=== PATIENT | male | born 2000 | race Caucasian/White ===

== ENCOUNTER 2019-06-17 13:37 | Emergency (ER) | payer SELFPAY ==
[2019-06-17 13:43] VITALS: BP 154/73; PULSE 88; RESP 16; TEMP 36.7; O2SAT 98; BMI 21.1
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
[2019-06-17 15:23] VITALS: O2SAT 98
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
[2019-06-17] MEDS: acetaminophen 500 mg Tablet 1000 MG PO (15:35)
[2019-06-17 17:29] VITALS: BP 115/84; PULSE 88; RESP 16; O2SAT 94
--- NOTE | 2019-06-20 10:09 | DCPLANNER ---
applications manager had message to schedule a follow up appointment for patient with Dr. Mosher. applications manager called the office of Dr. Mosher, spoke with Gretel, gave clinic patients information. applications manager was told that patients information would be printed off and given to Dandre for review. Clinic will call pillowcase turner and patient with appointment information.
--- NOTE | 2019-06-21 10:28 | DCPLANNER ---
Patient has a follow up appointment scheduled for Thursday, August 22, 2019 at 10:00 with Jennifer DONALD at [facility].
--- NOTE | 2019-07-07 10:46 | DCPLANNER ---
Dandre from Dr. Fisher office called community case manager, stating that she has not been able to reach patient with appointment information. wind plant manager was told that a letter was sent for patient and patient has not called back for appointment information. wind plant manager tried to call [phone] and it was just a busy signal.
== END 2019-06-17 18:10 | disposition home or self-care (01) ==
PROVIDERS: Emergency Provider Emergency Medicine; Family Provider Counselor Professional
DX: S16.1XXA Strain of muscle, fascia and tendon at neck level, initial encounter (principal); V59.9XXA Occupant (driver) (passenger) of pick-up truck or van injured in unspecified traffic accident, initial encounter
CPT/HCPCS: 70450; 71045; 72040; 72070; 72100; 72125; 72170; 72220; 99282

== ENCOUNTER 2019-09-12 07:00 | Emergency (ER) | payer SELFPAY ==
[2019-09-12 07:05] VITALS: BP 136/93; PULSE 110; RESP 16; TEMP 36.8; O2SAT 100; BMI 22.8
--- NOTE | 2019-09-12 07:07 | ED_ITS ---
HPI - Male Genitourinary General: Chief complaint: Urogenital-Male Stated complaint: Blood in urine Time Seen by Provider: 09/12/19 07:06 Source: patient Mode of arrival: ambulatory Limitations: no limitations History of Present Illness: HPI Narrative: Patient is a 19-year-old male who presents to ED today with complaints of dysuria and hematuria that began on Thursday. Patient tells me on Thursday he was playing baseball when a baseball struck his genitalia. Patient noticed the next day he began having symptoms. He feels his scrotum is swollen and tender to palpation. He denies any penile discharge, rashes/lesions. He denies new sexual partners or concern for STDs. MD Complaint: testicle pain, dysuria, genital injury and other (hematuria) Onset (ago): day(s) Location: right testicle and left testicle Relieving factors: none Exacerbating factors: urination Context: trauma Associated symptoms: Reports dysuria and hematuria; Deny nausea, urinary incontinence or vomiting Review of Systems General: Reports: 10 or more systems reviewed and unremarkable except in HPI and below Const: Denies: fever, chills, body aches, fatigue or malaise ENMT: Denies: throat pain, enlarged tonsils or painful swallowing Card: Denies: chest pain, palpitations or lightheadedness Resp: Denies: shortness of breath, productive cough or chest congestion GI: Denies: abdominal pain, nausea, vomiting or diarrhea : Reports: painful urination, blood in urine, genital pain, testicular pain and scrotal swelling; Denies: flank pain, difficulty urinating, urinary frequency, urinary urgency, urinary hesitancy, difficulty starting urination, change in urine stream, decreased urine ouput, urinary incontinence, genital lesion or penile discharge Musc: Denies: neck pain or back pain Skin/Breast: Denies: rash Neuro: Denies: headache, numbness in extremities, weakness in extremities or changes in sensation PFS ED PFSH: Social History (Updated 07/06/19 @ 13:45 by Dean Conroy LPN) Smoking and tobacco status: former smoker Quit status (tobacco): has quit using tobacco Year quit tobacco: 2019 Second hand smoke exposure: Yes Smoking risk assessment/counseling performed?: Yes Tobacco counseling given: counseling >3 minutes Physical Exam Const: COMMON NORMALS: no apparent distress, average body habitus, oriented x 3, no limitations, healthy appearing, alert and well nourished HENMT: COMMON NORMALS: normocephalic and head/scalp atraumatic HEAD & SCALP: normocephalic and atraumatic Resp: COMMON NORMALS: normal respiratory effort and clear to auscultation bilaterally AUSCULTATION: clear to auscultation bilaterally Cardio: COMMON NORMALS: regular rate and regular rhythm RATE: regular rate RHYTHM: regular rhythm GI: COMMON NORMALS: normal to inspection, nondistended, normoactive bowel s ounds, soft to palpation, non-tender, no hepatosplenomegaly and no masses PALPATION: Yes soft and Yes no hepatosplenomegaly : COMMON NORMALS: Yes no CVA tenderness, Yes external exam normal, Yes no scrotal swelling and Yes no hernias present BLADDER/KIDNEY EXAM: Yes no CVA tenderness PENIS: normal penis MEATUS: meatus normal SCROTUM: Yes testes descended bilaterally, No erythematous, No ecchymosis, No edematous, No scrotal swelling and No lesions TESTES: Yes testicular tenderness (R>L) and Yes epididymides normal Back/Pelvis: COMMON NORMALS: no CVA tenderness Extremity: COMMON NORMALS: normal to inspection Neuro: COMMON NORMALS: oriented x3 SENSORIUM/ORIENTATION: Yes alert Skin: COMMON NORMALS: no rashes or lesions noted GENERAL SKIN EXAM: no rashes or lesions noted Course Vital Signs: Vital signs: Vital Signs Temperature 98.3 F 09/12/19 07:05 Pulse Rate 110 H 09/12/19 07:05 Respiratory Rate 16 09/12/19 07:05 Blood Pressure 136/93 09/12/19 07:05 Pulse Oximetry 100 09/12/19 07:05 MDM - Male MDM Narrative: Medical decision making narrative: Upon re-examination to go over test results patient does state he wants to be tested for STDs stating his girlfriend and him recently broke up and got back together. States she had a different partner when they were broken up. He states he does not want treatment for STDs at this time and just wants tested. Told him lab should contact him for positive results but that he needs to contact medical records in a few days to get results. If positive, girlfriend would also need treatment. Patient verbalized understanding and again tells me he does not wish treatment at this time. Lab Data: Labs: Lab Results 09/12/19 09/12/19 09/12/19 Range/Units 07:15 07:15 07:25 WBC 8.3 (4.5-13.0) 10^3/ uL RBC 5.33 H (4.1-5.3) 10^6/u L Hgb 15.8 (11.7-16.6) g/dL Hct 46.9 (42.0-52.0) % MCV 88.0 (80-94) fL MCH 29.6 (28.0-34.0) pg MCHC 33.7 (30.0-36.0) g/dL RDW 11.3 L (12.1-15.1) % Plt Count 321 (130-400) 10^3/c mm MPV 11.2 H (7.4-10.4) fL Neut % (Auto) 60.2 % Lymph % (Auto) 25.4 % [place] % (Auto) 13.1 % Eos % (Auto) 0.6 % Baso % (Auto) 0.6 % Neut # (Auto) 5.0 (1.8-8.0) 10^3/u L Lymph # (Auto) 2.1 (1.5-6.5) 10^3/u L [place] # (Auto) 1.1 H (0.2-0.9) 10^3/u L Eos # (Auto) 0.1 (0.0-0.8) 10^3/u L Baso # (Auto) 0.1 (0.0-0.1) 10^3/u L Nucleated RBC % (a uto) 0 % Nucleated RBCs # 0.0 /100WBC Sodium 137 (136-145) mmol/L Potassium 3.2 L (3.5-5.1) mmol/L Chloride 97 L (98-107) mmol/L Carbon Dioxide 22 (22-29) mmol/L Anion Gap 21.2 H (5-19) BUN 8 (6-20) mg/dL Creatinine 0.9 (0.7-1.2) mg/dL GFR Calculation 107.6 (90-130) mL/min Glucose 116 H (65-115) mg/dL Calculated Osmolal ity 281 L (285-295) mOsm/k g Calcium 9.8 (8.5-10.5) mg/dL Total Bilirubin 0.9 (0.15-1.2) mg/dL AST 18 (0-40) U/L ALT 19 (0-41) U/L Alkaline Phosphata se 76 (40-130) IU/L Total Protein 8.1 (6.6-8.7) g/dL Albumin 4.8 (3.5-5.2) g/dL Globulin 3.3 (1.3-4.6) g/dL Urine Color Yellow (Yellow) Urine Appearance Clear (CLEAR) Urine pH 5 (5-7) Ur Specific Gravit y 1.025 (1.005-1.030) Urine Protein Neg (Negative) Urine Glucose (UA) Norm (Normal) Urine Ketones 3+ H (Negative) Urine Blood Neg (Negative) Urine Nitrate Negative (Negative) Urine Bilirubin Neg (NEGATIVE) Urine Urobilinogen Norm (Negative) mg/dL Ur Leukocyte Becky ase Negative (Negative) Imaging Data: US scrotum: My impression: Rick D-possible varicocele vs epididymitis on L but given history of trauma this is most likely more swelling/reactive findings Discharge Plan Discharge Patient Disposition: Home, Self-Care Clinical Impression: Pain in testicle due to trauma Condition: Stable Prescriptions: No Action ibuprofen 800 mg tablet 800 mg PO BID PRN (Reason: pain) RF: 0 buspirone 5 mg tablet 5 mg PO TID Qty: 90 RF: 1 trazodone 100 mg tablet 100 mg PO .HS Qty: 30 RF: 1 [place] 5-325 mg tablet 1 tab PO Q6H PRN (Reason: pain) Qty: 14 RF: 0 cyclobenzaprine 10 mg tablet 10 mg PO TID PRN (Reason: muscle spasm) Qty: 30 RF: 0 Discharge Orders: Discharge Order (Routine); Ordered 09/12/19 Ordered By: Lashell Urrutia Referrals: Tisha Lipscomb [Family Provider] - Jose Cobb MD [Primary Care Provider] - Discharge Diet: Usual diet Discharge Activity: Increase activity as tolerated Activity Restrictions/Additional Instructions: As discussed elevate your lower extremities and scrotum as much as possible. Wear supportive underwear. Ice the scrotum for 15-20 minutes every 1-2 hours (do not apply ice directly to skin). You may contact medical records in a few days for the remainder of your test results. 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
--- NOTE | 2019-09-12 07:13 | US_ITS ---
WS: [id number] SCROTAL ULTRASOUND EXAMINATION CLINICAL INFORMATION: trauma; hematuria COMPARISON: None. FINDINGS: TESTES Normal in size and echotexture, without focal lesion. Color Doppler: Normal color Doppler flow pattern. Right testes size: 3.6 cm x 2.6 cm x 1.8 cm. Left testes size: 3.9 cm x 2.5 cm x 2.1 cm. EPIDIDYMIDES Slightly enlarged edematous left epididymis with increased vascularity consistent with epididymitis. No evidence of orchitis. Normal right epididymis. HYDROCELE None. VARICOCELE None. OTHER FINDINGS None. US/US scrotum [id number] IMPRESSION: Enlarged left epididymis with increased vascularity consistent with epididymiti s. No evidence of orchitis
[2019-09-12 07:24] LABS: Basophils # 0.1 10^3/uL (0.0-0.1); Basophils % 0.6 %; Eosinophils # 0.1 10^3/uL (0.0-0.8); Eosinophils % 0.6 %; Hematocrit 46.9 % (42.0-52.0); Hemoglobin 15.8 g/dL (11.7-16.6); Lymphocytes # 2.1 10^3/uL (1.5-6.5); Lymphocytes % 25.4 %; Mean Corpuscular HGB Conc 33.7 g/dL (30.0-36.0); Mean Corpuscular Hemoglobin 29.6 pg (28.0-34.0); Mean Platelet Volume 11.2 fL (7.4-10.4); Monocytes # 1.1 10^3/uL (0.2-0.9); Monocytes % 13.1 %; Neutrophils % 60.2 %; Nucleated Red Blood Cells % 0 %; Platelet Count 321 10^3/cmm (130-400); Red Blood Count 5.33 10^6/uL (4.1-5.3); Red Cell Distribution Width 11.3 % (12.1-15.1); White Blood Count 8.3 10^3/uL (4.5-13.0)
[2019-09-12 07:42] LABS: Alanine Aminotransferase 19 U/L (0-41); Albumin Level 4.8 g/dL (3.5-5.2); Alkaline Phosphatase 76 IU/L (40-130); Anion Gap 21.2 (5-19); Aspartate Amino Transferase 18 U/L (0-40); Blood Urea Nitrogen 8 mg/dL (6-20); Calcium 9.8 mg/dL (8.5-10.5); Carbon Dioxide 22 mmol/L (22-29); Chloride 97 mmol/L (98-107); Globulin 3.3 g/dL (1.3-4.6); Glomerular Filtration Rate 107.6 mL/min (90-130); Glucose 116 mg/dL (65-115); Osmolality Calculated 281 mOsm/kg (285-295); Potassium 3.2 mmol/L (3.5-5.1); Sodium 137 mmol/L (136-145); Total Bilirubin 0.9 mg/dL (0.15-1.2); Total Protein 8.1 g/dL (6.6-8.7)
[2019-09-12 07:47] LABS: Add Urine Microscopic? NO
[2019-09-12 07:51] LABS: Bilirubin Urine Neg (NEGATIVE); Blood Urine Neg (Negative); Glucose Urine UA Norm (Normal); Ketones Urine 3+ (Negative); Leukocyte Esterase Urine Negative (Negative); Nitrate Urine Negative (Negative); Protein Urine Neg (Negative); Specific Gravity, Urine 1.025 (1.005-1.030); Urine Appearance Clear (CLEAR); Urine Color Yellow (Yellow); Urobilinogen Urine Norm (Negative); pH Urine 5 (5-7)
[2019-09-12 08:16] VITALS: BP 134/89; PULSE 106; RESP 18; O2SAT 100
== END 2019-09-12 08:18 | disposition home or self-care (01) ==
LOC: ER 08:46
PROVIDERS: Emergency Provider Physician Assistant; Family Provider Counselor Professional; PCP Family Medicine
DX: N50.812 Left testicular pain (principal); N50.811 Right testicular pain; Z87.891 Personal history of nicotine dependence; F41.1 Generalized anxiety disorder; F12.20 Cannabis dependence, uncomplicated; F15.20 Other stimulant dependence, uncomplicated
CPT/HCPCS: 12345; 36415; 76870; 80053; 81003; 85025; 87491; 87591; 99282; 99283

== ENCOUNTER 2020-01-10 22:45 | Inpatient (IN) | payer SELFPAY ==
[2020-01-10 22:52] VITALS: BP 121/76; PULSE 130; RESP 18; TEMP 36.6; O2SAT 100; BMI 22.1
--- NOTE | 2020-01-10 23:05 | XRR_ITS ---
PROCEDURE INFORMATION: Exam: XR Chest, 1 View Exam date and time: 01/10/2020 11:56 PM Age: 19 years old Clinical indication: Shortness of breath and other: Overdose TECHNIQUE: Imaging protocol: XR of the chest Views: 1 view. COMPARISON: CR XR chest 1V portable [id number] 06/17/2019 2:29 PM FINDINGS: Lungs: Unremarkable. No consolidation. Pleural space: Unremarkable. No pleural effusion. No pneumothorax. Heart/Mediastinum: Unremarkable. No cardiomegaly. Bones/joints: Unremarkable. XR/XR chest 1V portable [id number] IMPRESSION: No acute findings.
--- NOTE | 2020-01-10 23:06 | ECG_ITS ---
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 Measurements Intervals [place] Rate: 126 P: 82 GA: 141 QRS: 118 QRSD: 90 T: 53 QT: 292 QTc: 424 Interpretive Statements SINUS TACHYCARDIA LEFT POSTERIOR FASCICULAR BLOCK [QRS AXIS > 109, INFERIOR Q] No previous ECG available for comparison Electronically Signed On 01-11-2020 17:34:36 CDT by Floyd Quinteros M.D. [id number]
--- NOTE | 2020-01-10 23:10 | W.ED.OVERDOS ---
HPI - Overdose General: Chief Complaint: Overdose Stated Complaint: overdose Time Seen by Provider: 01/10/20 23:04 Source: patient Mode of arrival: ambulatory Limitations: no limitations History of Present Illness: HPI Narrative: Liu is a 19-year-old male who comes in anxious and feeling all sorts of strange sensations throughout his body since using IV methamphetamines. He gives the story that he was smoking methamphetamines for the past 2 days and has not slept in 3 days. Apparently who he was with thought he could be law enforcement so it forced him to use IV meth which he did. He states since that time he has felt strange all over, anxious that he does not like the way he feels. He admits to smoking marijuana as well but denies any other drugs. He has no focal pains or complaints other than he just feels weird/burning all over. Review of Systems Const: Denies: fever(s), chills, body aches, fatigue, malaise or diaphoresis Eyes: Denies: change in vision, blurry vision, blind spots, photophobia, eye discharge or eye redness ENMT: Denies: throat pain, odynophagia, hoarseness, swelling of lips/tongue, oral sores, ear or mastoid pain, ear discharge, change in hearing or nasal discharge Card: Denies: chest pain, palpitations, irregular heart rhythm, edema, lightheadedness, syncope, pre-syncope, dyspnea on exertion or orthopnea Resp: Denies: dyspnea, productive cough, non-productive cough, wheezing, hemoptysis or chest congestion GI: Denies: abdominal pain, nausea, vomiting, hematemesis, coffee ground emesis, heartburn, diarrhea, constipation, GI cramping, hematochezia or melena : Denies: flank pain, dysuria, urinary frequency, urinary urgency or hematuria Musc: Denies: neck pain, back pain, extremity pain, extremity swelling, joint pain, joint swelling, joint redness, joint warmth or joint stiffness Skin/Breast: Denies: rash, pruritus, erythema, skin tenderness or jaundice Neuro: Reports: other (Paresthesias); Denies: headache(s), numbness in extremities, weakness in extremities, sensory changes, lack of coordination, difficulty walking, dizziness, vertigo, confusion, Slurred speech present or seizure-like activity Psych: Reports: anxiety Edd/Lymph: Denies: easy bruising, easy bleeding, petechiae, purpura or enlarged lymph nodes All/Imm: Denies: urticaria, throat swelling, tongue swelling, facial swelling or acute wheezing PFSH ED PFSH: Medical History Amphetamine use disorder, severe Cannabis use disorder, severe, dependence Generalized anxiety disorder Social History Smoking and tobacco status: former smoker Quit status (tobacco): has quit using tobacco Year quit tobacco: 2019 Second hand smoke exposure: Yes Smoking risk assessment/counseling performed?: Yes Tobacco counseling given: counseling >3 minutes Current gender identity: Male Physical Exam Const: COMMON NORMALS: no acute distress, patient oriented x3, no limitations, healthy appearing and well nourished GENERAL APPEARANCE: cooperative, well kempt and well developed HENMT: COMMON NORMALS: normocephalic, atraumatic, external ears normal, EAC's normal and Normal external nose present HEAD & SCALP: normal to inspection, normocephalic and atraumatic FACE & SINUS: normal facial exam and face symmetric NOSE: Normal external nose present and Normal nares present EXTERNAL EAR: Yes external ears normal EXTERNAL AUDITORY CANAL: EAC's normal MOUTH: Normal oral and palatal mucosa present, lip normal and tongue normal Eye: COMMON NORMALS: Equal, round and reactive pupils present and conjunctivae normal GENERAL EYE: appearance normal, both eyes and all related structures ALIGNMENT: Yes alignment normal PERIORBITAL: periorbital findings normal EYELID: eyelids normal CONJUNCTIVA: Yes conjunctivae normal SCLERA: sclerae normal PUPIL: Yes Equal, round and reactive pupils present Neck/C-Spine: COMMON NORMALS: full ROM, no lymphadenopathy, supple, no meningeal signs and no JVD GENERAL: Yes normal visual inspection and Yes trachea midline Chest: COMMONS NORMALS: normal inspection of the chest and normal palpation of entire chest wall Resp: COMMON NORMALS: normal respiratory effort, No retractions and No use of accessory muscles EFFORT & INSPECTION: Yes able to speak in complete sentences and Yes symmetric chest movement AUSCULTATION: no crackles, no rales, no rhonchi and no wheezes Cardio: COMMON NORMALS: no JVD, regular rhythm, S1 normal heart sound present and S2 normal heart sound present RATE: tachycardic RHYTHM: regular rhythm HEART SOUNDS: S1 normal heart sound present, S2 normal heart sound present, no click, no gallops, no murmurs, no rubs and abnormal split S2 GI: COMMON NORMALS: Soft to palpation and No hepatosplenomegaly present PALPATION: Yes Soft to palpation, No Tenderness to palpation present (GI), No Guarding due to palpation present (GI), No Rigid due to palpation, Yes No hepatosplenomegaly present, No Hernia present, No Palpable mass present and No Pulsatile mass present : COMMON NORMALS: Yes no CVA tenderness BLADDER/KIDNEY EXAM: Yes no CVA tenderness Back/Pelvis: COMMON NORMALS: no CVA tenderness, thoracic and lumbar spine normal to inspection, no thoracic nor lumbar tenderness and thoraco-lumbar ROM normal Extremity: COMMON NORMALS: normal to inspection, full ROM, capillary refill normal, no joint enlargement, no clubbing, cyanosis or edema and no calf tenderness Neuro: COMMON NORMALS: patient oriented x3, CN's II-XII intact bilaterally, moves all extremities, no focal motor deficits and no sensory deficits noted MENINGEAL SIGNS: Yes no meningeal signs SPEECH: speech normal Psych: COMMON NORMALS: mental status grossly normal, Normal thought process present, cooperative, normal affect, speech normal and activity/motor behavior normal APPEARANCE: Yes well kempt SPEECH: Yes normal speech THOUGHT PROCESS: Normal thought process present Skin: COMMON NORMALS: no rashes or lesions noted, turgor normal, no jaundice, no petechiae and no mottling GENERAL SKIN EXAM: no rashes or lesions noted and turgor normal Course Vital Signs: Vital signs: Vital Signs Temperature 97.9 F 01/10/20 22:52 Pulse Rate 99 01/11/20 03:56 Respiratory Rate 16 01/11/20 03:56 Blood Pressure 100/53 01/11/20 03:56 Pulse Oximetry 99 01/11/20 03:56 MDM - Overdose MDM Narrative: Medical decision making narrative: The case was reviewed with Dr. Díaz and he agrees to admission. The patient's CK is not in a dangerous range but we will check a daily value to be certain it goes down. The patient is alert and oriented is taking p.o. well there should be no problem with him clearing this. His kidney function is good. Repeat level here after just 2 hours shows that he is clearing the CK well. I will order daily CKs until normal. If it does go up the patient will have to have a consult by the hospitalist service but right now his fluids are still running and his CK is improving. Patient understands has been placed under psychiatric hold for comments made and documented an affidavit. Further care will be dictated by Dr. Díaz. Lab Data: Attestation: I reviewed the patient's lab results. Labs: Lab Results 01/10/20 01/10/20 01/10/20 Range/Units 23:45 23:45 23:45 WBC 10.4 (4.5-13.0) 10^3/ uL RBC 5.19 (4.1-5.3) 10^6/u L Hgb 15.4 (11.7-16.6) g/dL Hct 46.5 (42.0-52.0) % MCV 89.6 (80-94) fL MCH 29.7 (28.0-34.0) pg MCHC 33.1 (30.0-36.0) g/dL RDW 11.6 L (12.1-15.1) % Plt Count 285 (130-400) 10^3/c mm MPV 11.7 H (7.4-10.4) fL Neut % (Auto) 62.2 % Lymph % (Auto) 21.3 % Shackelford % (Auto) 15.1 % Eos % (Auto) 0.4 % Baso % (Auto) 0.7 % Neut # (Auto) 6.47 (1.8-8.0) 10^3/u L Lymph # (Auto) 2.2 (1.5-6.5) 10^3/u L Shackelford # (Auto) 1.6 H (0.2-0.9) 10^3/u L Eos # (Auto) 0.0 (0.0-0.8) 10^3/u L Baso # (Auto) 0.1 (0.0-0.1) 10^3/u L Nucleated RBC % (a uto) 0 % Nucleated RBCs # 0.0 /100WBC Specimen Type Sample Site ABG pH (7.35-7.45) ABG pCO2 (35-45) mmHg ABG pO2 (80.0-100.0) mmH g ABG HCO3 (22-26) mmol/L ABG Base Excess (-2.0-2.0) mmol/ L Yossi Test Hematocrit (42-52) % O2 Delivery Device It Communications Manager ID Sodium 136 (136-145) mmol/L Potassium 3.9 (3.5-5.1) mmol/L Chloride 99 (98-107) mmol/L Carbon Dioxide 20 L (22-29) mmol/L Anion Gap 20.9 H (5-19) BUN 16 (6-20) mg/dL Creatinine 0.9 (0.7-1.2) mg/dL GFR Calculation 107.6 (90-130) mL/min Glucose 91 (65-115) mg/dL Calculated Osmolal ity 278 L (285-295) mOsm/k g Lactic Acid (0.5-2.2) mmol/L Calcium 9.4 (8.5-10.5) mg/dL Magnesium 2.2 (1.7-2.3) mg/dL Total Bilirubin 0.9 (0.15-1.2) mg/dL AST 87 H (0-40) U/L ALT 40 (0-41) U/L Alkaline Phosphata se 57 (40-130) IU/L Creatine Kinase 2772 H* (39-308) U/L Troponin T Baselin e 7 (0-15) ng/L Troponin T 120 Min rosebud (0-15) ng/L Delta Troponin T (0-10) ABS# Total Protein 7.6 (6.6-8.7) g/dL Albumin 4.8 (3.5-5.2) g/dL Globulin 2.8 (1.3-4.6) g/dL Lipase (13-60) U/L Urine Color (Yellow) Urine Appearance (CLEAR) Urine pH (5-7) Ur Specific Gravit y (1.005-1.030) Urine Protein (Negative) Urine Glucose (UA) (Normal) Urine Ketones (Negative) Urine Blood (Negative) Urine Nitrate (Negative) Urine Bilirubin (NEGATIVE) Urine Urobilinogen (Negative) mg/dL Ur Leukocyte Becky ase (Negative) Ur Microscopic Ind ic Urine RBC (0-2) /hpf Urine WBC (0-5) /hpf Ur Squamous Epith Cells (0-5) Amorphous Sediment Urine Bacteria (NONE) Salicylates (3-10) mg/dL Urine Opiates Scre en (Negative) ng/mL Acetaminophen (10-30) ug/mL Ur Barbiturates Sc reen (Negative) ng/mL Phenytoin (10-20) ug/mL Valproic Acid (50-100) ug/mL Carbamazepine (4.0-12.0) ug/mL Ur Phencyclidine S crn (Negative) ng/mL Ur Amphetamines Sc reen (Negative) ng/mL U Benzodiazepines Scrn (Negative) ng/mL Douglass (0.6-1.2) mmol/L Urine Cocaine Scre en (Negative) ng/mL U Marijuana (THC) Screen (Negative) ng/mL Ethyl Alcohol < 10 (0-10) mg/dL 01/11/20 01/11/20 01/11/20 Range/Units 00:40 00:40 00:40 WBC (4.5-13.0) 10^3/ uL RBC (4.1-5.3) 10^6/u L Hgb (11.7-16.6) g/dL Hct (42.0-52.0) % MCV (80-94) fL MCH (28.0-34.0) pg MCHC (30.0-36.0) g/dL RDW (12.1-15.1) % Plt Count (130-400) 10^3/c mm MPV (7.4-10.4) fL Neut % (Auto) % Lymph % (Auto) % Shackelford % (Auto) % Eos % (Auto) % Baso % (Auto) % Neut # (Auto) (1.8-8.0) 10^3/u L Lymph # (Auto) (1.5-6.5) 10^3/u L Shackelford # (Auto) (0.2-0.9) 10^3/u L Eos # (Auto) (0.0-0.8) 10^3/u L Baso # (Auto) (0.0-0.1) 10^3/u L Nucleated RBC % (a uto) % Nucleated RBCs # /100WBC Specimen Type Sample Site ABG pH (7.35-7.45) ABG pCO2 (35-45) mmHg ABG pO2 (80.0-100.0) mmH g ABG HCO3 (22-26) mmol/L ABG Base Excess (-2.0-2.0) mmol/ L Yossi Test Hematocrit (42-52) % O2 Delivery Device It Communications Manager ID Sodium (136-145) mmol/L Potassium (3.5-5.1) mmol/L Chloride (98-107) mmol/L Carbon Dioxide (22-29) mmol/L Anion Gap (5-19) BUN (6-20) mg/dL Creatinine (0.7-1.2) mg/dL GFR Calculation (90-130) mL/min Glucose (65-115) mg/dL Calculated Osmolal ity (285-295) mOsm/k g Lactic Acid (0.5-2.2) mmol/L Calcium (8.5-10.5) mg/dL Magnesium (1.7-2.3) mg/dL Total Bilirubin (0.15-1.2) mg/dL AST (0-40) U/L ALT (0-41) U/L Alkaline Phosphata se (40-130) IU/L Creatine Kinase (39-308) U/L Troponin T Baselin e (0-15) ng/L Troponin T 120 Min rosebud 6.00 (0-15) ng/L Delta Troponin T -1.00 L (0-10) ABS# Total Protein (6.6-8.7) g/dL Albumin (3.5-5.2) g/dL Globulin (1.3-4.6) g/dL Lipase 18 (13-60) U/L Urine Color (Yellow) Urine Appearance (CLEAR) Urine pH (5-7) Ur Specific Gravit y (1.005-1.030) Urine Protein (Negative) Urine Glucose (UA) (Normal) Urine Ketones (Negative) Urine Blood (Negative) Urine Nitrate (Negative) Urine Bilirubin (NEGATIVE) Urine Urobilinogen (Negative) mg/dL Ur Leukocyte Becky ase (Negative) Ur Microscopic Ind ic Urine RBC (0-2) /hpf Urine WBC (0-5) /hpf Ur Squamous Epith Cells (0-5) Amorphous Sediment Urine Bacteria (NONE) Salicylates < 0.3 L (3-10) mg/dL Urine Opiates Scre en (Negative) ng/mL Acetaminophen < 5.0 L (10-30) ug/mL Ur Barbiturates Sc reen (Negative) ng/mL Phenytoin 0.8 L (10-20) ug/mL Valproic Acid 2.8 L (50-100) ug/mL Carbamazepine 2.0 L (4.0-12.0) ug/mL Ur Phencyclidine S crn (Negative) ng/mL Ur Amphetamines Sc reen (Negative) ng/mL U Benzodiazepines Scrn (Negative) ng/mL Douglass 0.1 L (0.6-1.2) mmol/L Urine Cocaine Scre en (Negative) ng/mL U Marijuana (THC) Screen (Negative) ng/mL Ethyl Alcohol (0-10) mg/dL 01/11/20 01/11/20 01/11/20 Range/Units 00:40 00:40 01:25 WBC (4.5-13.0) 10^3/ uL RBC (4.1-5.3) 10^6/u L Hgb (11.7-16.6) g/dL Hct (42.0-52.0) % MCV (80-94) fL MCH (28.0-34.0) pg MCHC (30.0-36.0) g/dL RDW (12.1-15.1) % Plt Count (130-400) 10^3/c mm MPV (7.4-10.4) fL Neut % (Auto) % Lymph % (Auto) % Shackelford % (Auto) % Eos % (Auto) % Baso % (Auto) % Neut # (Auto) (1.8-8.0) 10^3/u L Lymph # (Auto) (1.5-6.5) 10^3/u L [place]ord # (Auto) (0.2-0.9) 10^3/u L Eos # (Auto) (0.0-0.8) 10^3/u L Baso # (Auto) (0.0-0.1) 10^3/u L Nucleated RBC % (a uto) % Nucleated RBCs # /100WBC Specimen Type Arterial Sample Site Radial, right ABG pH 7.44 (7.35-7.45) ABG pCO2 29.1 L (35-45) mmHg ABG pO2 109.0 H (80.0-100.0) mmH g ABG HCO3 19.6 L (22-26) mmol/L ABG Base Excess -3.3 L (-2.0-2.0) mmol/ L Yossi Test Pos Hematocrit 44.4 (42-52) % O2 Delivery Device Room air It Communications Manager ID Halpa Sodium (136-145) mmol/L Potassium (3.5-5.1) mmol/L Chloride (98-107) mmol/L Carbon Dioxide (22-29) mmol/L Anion Gap (5-19) BUN (6-20) mg/dL Creatinine (0.7-1.2) mg/dL GFR Calculation (90-130) mL/min Glucose (65-115) mg/dL Calculated Osmolal ity (285-295) mOsm/k g Lactic Acid 1.0 (0.5-2.2) mmol/L Calcium (8.5-10.5) mg/dL Magnesium (1.7-2.3) mg/dL Total Bilirubin (0.15-1.2) mg/dL AST (0-40) U/L ALT (0-41) U/L Alkaline Phosphata se (40-130) IU/L Creatine Kinase 2560 H* (39-308) U/L Troponin T Baselin e (0-15) ng/L Troponin T 120 Min rosebud (0-15) ng/L Delta Troponin T (0-10) ABS# Total Protein (6.6-8.7) g/dL Albumin (3.5-5.2) g/dL Globulin (1.3-4.6) g/dL Lipase (13-60) U/L Urine Color (Yellow) Urine Appearance (CLEAR) Urine pH (5-7) Ur Specific Gravit y (1.005-1.030) Urine Protein (Negative) Urine Glucose (UA) (Normal) Urine Ketones (Negative) Urine Blood (Negative) Urine Nitrate (Negative) Urine Bilirubin (NEGATIVE) Urine Urobilinogen (Negative) mg/dL Ur Leukocyte Becky ase (Negative) Ur Microscopic Ind ic Urine RBC (0-2) /hpf Urine WBC (0-5) /hpf Ur Squamous Epith Cells (0-5) Amorphous Sediment Urine Bacteria (NONE) Salicylates (3-10) mg/dL Urine Opiates Scre en (Negative) ng/mL Acetaminophen (10-30) ug/mL Ur Barbiturates Sc reen (Negative) ng/mL Phenytoin (10-20) ug/mL Valproic Acid (50-100) ug/mL Carbamazepine (4.0-12.0) ug/mL Ur Phencyclidine S crn (Negative) ng/mL Ur Amphetamines Sc reen (Negative) ng/mL U Benzodiazepines Scrn (Negative) ng/mL Douglass (0.6-1.2) mmol/L Urine Cocaine Scre en (Negative) ng/mL U Marijuana (THC) Screen (Negative) ng/mL Ethyl Alcohol (0-10) mg/dL 01/11/20 01/11/20 Range/Units 02:16 02:16 WBC (4.5-13.0) 10^3/ uL RBC (4.1-5.3) 10^6/u L Hgb (11.7-16.6) g/dL Hct (42.0-52.0) % MCV (80-94) fL MCH (28.0-34.0) pg MCHC (30.0-36.0) g/dL RDW (12.1-15.1) % Plt Count (130-400) 10^3/c mm MPV (7.4-10.4) fL Neut % (Auto) % Lymph % (Auto) % Shackelford % (Auto) % Eos % (Auto) % Baso % (Auto) % Neut # (Auto) (1.8-8.0) 10^3/u L Lymph # (Auto) (1.5-6.5) 10^3/u L Shackelford # (Auto) (0.2-0.9) 10^3/u L Eos # (Auto) (0.0-0.8) 10^3/u L Baso # (Auto) (0.0-0.1) 10^3/u L Nucleated RBC % (a uto) % Nucleated RBCs # /100WBC Specimen Type Sample Site ABG pH (7.35-7.45) ABG pCO2 (35-45) mmHg ABG pO2 (80.0-100.0) mmH g ABG HCO3 (22-26) mmol/L ABG Base Excess (-2.0-2.0) mmol/ L Yossi Test Hematocrit (42-52) % O2 Delivery Device It Communications Manager ID Sodium (136-145) mmol/L Potassium (3.5-5.1) mmol/L Chloride (98-107) mmol/L Carbon Dioxide (22-29) mmol/L Anion Gap (5-19) BUN (6-20) mg/dL Creatinine (0.7-1.2) mg/dL GFR Calculation (90-130) mL/min Glucose (65-115) mg/dL Calculated Osmolal ity (285-295) mOsm/k g Lactic Acid (0.5-2.2) mmol/L Calcium (8.5-10.5) mg/dL Magnesium (1.7-2.3) mg/dL Total Bilirubin (0.15-1.2) mg/dL AST (0-40) U/L ALT (0-41) U/L Alkaline Phosphata se (40-130) IU/L Creatine Kinase (39-308) U/L Troponin T Baselin e (0-15) ng/L Troponin T 120 Min rosebud (0-15) ng/L Delta Troponin T (0-10) ABS# Total Protein (6.6-8.7) g/dL Albumin (3.5-5.2) g/dL Globulin (1.3-4.6) g/dL Lipase (13-60) U/L Urine Color Yellow (Yellow) Urine Appearance Clear (CLEAR) Urine pH 5 (5-7) Ur Specific Gravit y 1.025 (1.005-1.030) Urine Protein Neg (Negative) Urine Glucose (UA) Norm (Normal) Urine Ketones 1+ H (Negative) Urine Blood Neg (Negative) Urine Nitrate Negative (Negative) Urine Bilirubin Neg (NEGATIVE) Urine Urobilinogen Norm (Negative) mg/dL Ur Leukocyte Becky ase Negative (Negative) Ur Microscopic Ind ic Cancelled Urine RBC None (0-2) /hpf Urine WBC None (0-5) /hpf Ur Squamous Epith Cells None (0-5) Amorphous Sediment Not Reportable Urine Bacteria Trace (NONE) Salicylates (3-10) mg/dL Urine Opiates Scre en Negative (Negative) ng/mL Acetaminophen (10-30) ug/mL Ur Barbiturates Sc reen Negative (Negative) ng/mL Phenytoin (10-20) ug/mL Valproic Acid (50-100) ug/mL Carbamazepine (4.0-12.0) ug/mL Ur Phencyclidine S crn Negative (Negative) ng/mL Ur Amphetamines Sc reen Positive H (Negative) ng/mL U Benzodiazepines Scrn Negative (Negative) ng/mL Douglass (0.6-1.2) mmol/L Urine Cocaine Scre en Negative (Negative) ng/mL U Marijuana (THC) Screen Positive H (Negative) ng/mL Ethyl Alcohol (0-10) mg/dL EKG Data^: EKG 1: Attestation: I personally reviewed and interpreted this EKG as follows: EKG interpretation date: 01/11/20 EKG interpretation time: 23:18 Interpretation: Sinus tachycardia at 126 beats a minute, right axis deviation, nonspecific ST and T wave changes. Left posterior fascicular block. EKG 2: Attestation: I personally reviewed and interpreted this EKG as follows: EKG interpretation date: 01/11/20 EKG interpretation time: 01:28 Interpretation: Sinus tachycardia 115 beats a minute, right axis deviation, left posterior fascicular block, nonspecific ST-T wave changes. Unchanged from previous. Discharge Plan Discharge Patient Disposition: Admitted As Inpatient Admit Provider: Ray Díaz Clinical Impression: Suicidal ideation Drug overdose Qualifiers: Encounter type: initial encounter Injury intent: accidental or unintentional Qualified Code(s): T50.901A - Poisoning by unspecified drugs, medicaments and biological substances, accidental (unintentional), initial encounter Condition: Stable Referrals: Jose Cobb MD [Primary Care Provider] - Coding Level of Care Code ED [employer] Advisor for Chg Fwd Exam Comprehensive
--- NOTE | 2020-01-10 23:37 | PC.NURSE ---
THIS NURSE ASSUMED CARE OF PT AT THIS TIME.
[2020-01-10] MEDS: ondansetron 2 mg/ML SDV 2 mL 4 MG IVP (23:55)
[2020-01-10] MEDS: LORazepam 2 mg/mL INJ 1 mL 1 MG IVP (23:55)
[2020-01-11] VITALS (9 sets, daily range): BP systolic 97–135; BP diastolic 52–73; PULSE 77–120; RESP 10–18; TEMP 36.3–36.9; O2SAT 96–100
[2020-01-11] MEDS: lactated ringers 1,000 ML 999 ML IV ×2 (00:13)
[2020-01-11 00:23] LABS: Alanine Aminotransferase 40 U/L (0-41); Albumin Level 4.8 g/dL (3.5-5.2); Alkaline Phosphatase 57 IU/L (40-130); Aspartate Amino Transferase 87 U/L (0-40); Blood Urea Nitrogen 16 mg/dL (6-20); Calcium 9.4 mg/dL (8.5-10.5); Carbon Dioxide 20 mmol/L (22-29); Chloride 99 mmol/L (98-107); Globulin 2.8 g/dL (1.3-4.6); Glomerular Filtration Rate 107.6 mL/min (90-130); Glucose 91 mg/dL (65-115); Magnesium 2.2 mg/dL (1.7-2.3); Osmolality Calculated 278 mOsm/kg (285-295); Sodium 136 mmol/L (136-145); Total Bilirubin 0.9 mg/dL (0.15-1.2); Total Protein 7.6 g/dL (6.6-8.7)
[2020-01-11 00:25] LABS: Troponin(5th) Baseline 7 ng/L (0-15)
[2020-01-11 00:26] LABS: Basophils # 0.1 10^3/uL (0.0-0.1); Basophils % 0.7 %; Eosinophils % 0.4 %; Hematocrit 46.5 % (42.0-52.0); Hemoglobin 15.4 g/dL (11.7-16.6); Lymphocytes # 2.2 10^3/uL (1.5-6.5); Lymphocytes % 21.3 %; Mean Corpuscular HGB Conc 33.1 g/dL (30.0-36.0); Mean Corpuscular Hemoglobin 29.7 pg (28.0-34.0); Mean Corpuscular Volume 89.6 fL (80-94); Mean Platelet Volume 11.7 fL (7.4-10.4); Monocytes # 1.6 10^3/uL (0.2-0.9); Monocytes % 15.1 %; Neutrophils # 6.47 10^3/uL (1.8-8.0); Neutrophils % 62.2 %; Nucleated Red Blood Cells % 0 %; Platelet Count 285 10^3/cmm (130-400); Red Blood Count 5.19 10^6/uL (4.1-5.3); Red Cell Distribution Width 11.6 % (12.1-15.1); White Blood Count 10.4 10^3/uL (4.5-13.0)
[2020-01-11 00:29] LABS: Alcohol Level < 10 mg/dL (0-10); Anion Gap 20.9 (5-19); Potassium 3.9 mmol/L (3.5-5.1)
[2020-01-11 00:55] LABS: Creatine Phosphokinase 2772 U/L (39-308)
--- NOTE | 2020-01-11 01:06 | ECG_ITS ---
[facility] Test Date: 2020-01-11 Pat Name: Liu Cisneros Department: Room: Gender: Male Quality Coordinator: : 2000 Requested By: Ivory Ang Order Number: [id number] Venus MD: Floyd Quinteros M.D. Measurements Intervals [place] Rate: 115 P: 78 PA: 141 QRS: 108 QRSD: 95 T: 53 QT: 325 QTc: 450 Interpretive Statements SINUS TACHYCARDIA RIGHT AXIS DEVIATION [QRS AXIS > 100] Compared to ECG 01/10/2020 23:18:28 No significant change is noted Electronically Signed On 01-11-2020 10:30:09 CDT by Floyd Quinteros M.D. [email or web address]
[2020-01-11 01:10] LABS: Lipase 18 U/L (13-60); Valproic Acid Level 2.8 ug/mL (50-100)
[2020-01-11 01:14] LABS: Acetaminophen < 5.0 ug/mL (10-30); Salicylate < 0.3 mg/dL (3-10)
[2020-01-11] MEDS: LORazepam 2 mg/mL INJ 1 mL 1 MG IVP ×2 (01:19→02:07)
[2020-01-11 01:26] LABS: Lithium 0.1 mmol/L (0.6-1.2); Phenytoin Dilantin 0.8 ug/mL (10-20)
[2020-01-11 01:35] LABS: ABG PCO2 29.1 mmHg (35-45); ABG PH Result 7.44 (7.35-7.45); Arterial Blood Gas Hematocrit 44.4 % (42-52); Base Excess ABG -3.3 mmol/L (-2.0-2.0); Blood Gas Allen Test Pos; Blood Gas Sample Site Radial, right; Blood Gas Sample Type Arterial; HCO3 ABG 19.6 mmol/L (22-26); Oxygen Device ROOM AIR
[2020-01-11] MEDS: sodium chloride 0.9% 1,000 ML 999 ML IV ×2 (02:08→03:11)
[2020-01-11 02:25] LABS: Creatine Phosphokinase 2560 U/L (39-308)
[2020-01-11 02:38] LABS: Amphetamines Screen Urine Positive (Negative); Barbiturates Screen Urine Negative (Negative); Benzodiazepines Screen Urine Negative (Negative); Bilirubin Urine Neg (NEGATIVE); Blood Urine Neg (Negative); Cocaine Screen Urine Negative (Negative); Glucose Urine UA Norm (Normal); Ketones Urine 1+ (Negative); Leukocyte Esterase Urine Negative (Negative); Nitrate Urine Negative (Negative); Opiate Screen Urine Negative (Negative); PCP Screen Urine Negative (Negative); Protein Urine Neg (Negative); Specific Gravity, Urine 1.025 (1.005-1.030); THC Screen Urine Positive (Negative); Urine Appearance Clear (CLEAR); Urine Color Yellow (Yellow); Urobilinogen Urine Norm (Negative); pH Urine 5 (5-7)
[2020-01-11 02:39] LABS: Bacteria Urine TRACE
[2020-01-11 07:36] LABS: Troponin 5 6HR 6.89 ng/L (0-15); Troponin 5 6HR Delta -0.11 ng/L (0-12)
--- NOTE | 2020-01-11 13:58 | P.HP_ITS ---
Providers/Chief Complaint Admitting Physician: Ray Díaz MD Primary Care Provider: Jose Cobb MD Chief Complaint: overdose HPI NPU History of Present Illness Chief complaint: DFS contest using drugs and they took my kid away. Now my girlfriend is moving to [place]. History of present illness:Liu Cisneros is a 19 year old male admi tted to the adult psychiatric unit on the strength of an affidavit filed by his aunt who reported that he had made multiple suicide statements over the past 2 weeks. He has a long-term history of methamphetamine and marijuana abuse. Urine drug screen is positive for both. He presents today and distress due to his substance abuse. He has difficulty focusing his attention. During the interview he just lays his head on the desk. When he does not focus on issues leading to hospitalization, he simply sits there and sobs. He provides no significant information as his speech is slurred. Information below is acquired through chart review. Laboratory Tests 01/10/20 01/11/20 01/11/20 23:45 00:40 02:16 Creatine Kinase 2560 H* Urine Opiates Screen Negative Ur Barbiturates Screen Negative Ur Phencyclidine Scrn Negative Ur Amphetamines Screen Positive H U Benzodiazepines Scrn Negative Urine Cocaine Screen Negative U Marijuana (THC) Screen Positive H Ethyl Alcohol < 10 ER physician note: HPI Narrative: Liu is a 19-year-old male who comes in anxious and feeling all sorts of strange sensations throughout his body since using IV methamphetamines. He gives the story that he was smoking methamphetamines for the past 2 days and has not slept in 3 days. Apparently who he was with thought he could be law enforcement so it forced him to use IV meth which he did. He states since that time he has felt strange all over, anxious that he does not like the way he feels. He admits to smoking marijuana as well but denies any other drugs. He has no focal pains or complaints other than he just feels weird/burning all over. Mental health history: Psychiatric Evaluation of 07/06/2019 History of Present Illness: This is a 18-year-old male with a history of severe methamphetamine and marijuana use who is now 40 days sober while at [facility]. He is complaining of anxiety with frequent worry anxious racing thoughts in addition to his mind going blank often feeling confused. He feels like the last year of meth binging is change his brain which is likely an accurate assessment. Tells me he started using meth at the age of 15 daily started but over a year ago presents to only get an eating it. His girlfriend is also trying with getting sober as well. DFS to the patient's [id number] child is now in custody with the patient's grandmother. Patient denies any suicidal thoughts he does have craving for meth and says that he gets upset he automatically thinks about using meth again. There is no medication assisted treatment for stimulants such as methamphetamine hopefully treating anxiety di fficulties and being a controlled environment allowed to get filled on his cravings. Mental Health intake from 12/23/2019: [facility] Complaint: anger outbursts, really bad depression. Childhood/Family History:: I don't like holding everything in, need better ways to cope, have problems expressing myself, been clean since July of this year, depression, have alot of anxiety, feel people are staring at me or want to fight me, when I am at the park with my kids I constantly watch them think someone will hurt them or they will fall and hurt themselves, to the point of being overprotective, sleep a few hours of sleep per night, okay childhood raised by mom at age 13, then went to [place] and lived with dad, 2 brothers and 2 sisters, have a son and daughter 3 and 1. Past Psychiatric History: He denies past admissions, says he had some cutting at the age of 13 when girlfriend broke up with him with 3 cuts on his left arm. 14 months ago he says he had a suicide attempt when he was high on meth when he tried to hang himself but the toñito broke. He denies ever being treated with medications. It is unclear whether he has been through rehab previously Family History: Noncontributory Substance Use History: Methamphetamine: Started at age of [age] years old daily started by age 17 he denies IV drug use says he snorts it and he said last use was 40 days ago Marijuana: Started at age [age] years old daily user for a number of years last use was 40 days ago Social History: Never been he has a current girlfriend and they have a [id number] son together. Son staying with the patient's grandmother. Patient dropped out of school in 10th grade as a GED. He says he was in special classes for reading Legal history: Patient has 1 felony arrest with 3 separate charges from 19 Oct 2019. He was charged with armed criminal action, unlawful use of a weapon, and third degree domestic assault. Past medical history: See emergency room record Mental Status Exam: The patient is fatigued and staggers into the interview room. He is oriented only to situation. He does not know where he is. He recalls getting high last night and using IV methamphetamine. He said he became concerned and called his aunt. His aunt brought him to the emergency room. The next thing he knew he was here. He confirmed as reports he has made suicidal statements. He then became despondent and tearful making of the chief complaint and then becoming unable to interview because of his tearfulness and lethargy. He was in no apparent physical distress. Diagnoses: Amphetamine intoxication Marijuana intoxication History of amphetamine use disorder History of marijuana use disorder Adjustment disorder with disturbance of mood and conduct Assessment: The patient has had an independent psychiatric evaluation within the past 6 months detailing her primary diagnoses of substance abuse disorder. We are unaware of his participation in prior rehabilitation programs but that will be explored and he will be recommended for the most intense rehabilitation services that are available and appropriate to him. Further information will be required to assess whether he would respond to antidepressant treatment. Treatment plan: Due to the psychiatric conditions and treatment listed in the Assessment and Plan - the patient requires continued hospitalization. Will provide a safe and therapeutic environment for patient.. Will continue inpatient treatment to allow for medication adjustment and monit oring. Will continue q15 min safety checks. The patient has had an independent psychiatric evaluation within the past 6 months detailing her primary diagnoses of substance abuse disorder. We are u naware of his participation in prior rehabilitation programs but that will be explored and he will be recommended for the most intense rehabilitation services that are available and appropriate to him. Further information will be required to assess whether he would respond to antidepressant treatment. Patient will be admitted to the adult psychiatric unit and entered into the full array of individual and group therapies as part of that unit protocol. They will be provided 24-hour access to trained psychiatric nursing care and monitoring. Potential benefits and side effects of medications were discussed as well as the time course of expected response to medication changes. No medications are initiated at this time. He is on a 96-hour involuntary commitment. Monitor patient's mood, sleep, appetite, and behavior closely. Encourage patient to participate in individual and group therapeutic sessions on the [facility]. Estimated length of stay 5 days The expected benefits and potential side effects of patient's psychiatric medications were discussed with the patient. The patient understands and consents to treatment.CRITERIA FOR DISCHARGE: stable on medications and no longer an imminent risk Meds NPU Home Medications Medication Instructions Recorded Confirmed Last Taken Type cyclobenzaprine 10 mg PO TID PRN #30 tab 06/17/19 12/23/19 Unknown Rx hydrocodone-acetaminophen [[place]] 1 tab PO Q6H PRN #14 tab 06/17/19 12/23/19 Unknown Rx ibuprofen 800 mg tablet 800 mg PO BID PRN tab 07/06/19 12/23/19 Unknown History cetirizine 10 mg capsule 10 mg PO DAILY 12/15/19 12/23/19 Unknown History buspirone 15 mg tablet 15 mg PO TID #90 tab 12/16/19 12/23/19 Unknown Rx duloxetine 30 mg capsule,delayed 30 mg PO DAILY #30 cap 12/16/19 12/23/19 Unknown Rx release Allergies Allergy/AdvReac Type Severity Reaction Status Date / Time No Known Allergies Allergy Verified 12/15/19 12:07 [facility] NPU PFSH: Medical History Amphetamine use disorder, severe Cannabis use disorder, severe, dependence Generalized anxiety disorder Social History Smoking and tobacco status: former smoker Quit status (tobacco): has quit using tobacco Year quit tobacco: 2019 Second hand smoke exposure: Yes Smoking risk assessment/counseling performed?: Yes Tobacco counseling given: counseling >3 minutes Current gender identity: Male Vitals/I&O/Wt Last Vital Signs Temp 98.5 F 01/11/20 13:28 Pulse 104 H 01/11/20 13:28 Resp 18 01/11/20 13:28 BP 101/54 01/11/20 13:28 Pulse Ox 99 01/11/20 13:28 01/10/20 01/11/20 01/11/20 22:59 06:59 14:59 Intake Total 0 / 0 Balance 0 / 0 Weight last 48 hrs Weight 68.039 kg Data NPU : 01/10/20 23:45 01/10/20 23:45 Involuntary Hold Information 96 Hour Hold: 96 Hour Involuntary Admission: Yes 96 Hour Hold Ending Date: 01/17/20 96 Hour Hold Ending Time: 02:30 Attestations NPU Medical Necessity Statement*: Patient will remain in the hospital another 4-6 nights under an involuntary commitment. Coding Level of Care Code Acute [employer] for Juaquin Garcia
[2020-01-11] MEDS: hyDROXYzine 25 mg Capsule 50 MG PO (17:05)
[2020-01-12] MEDS: acetaminophen 325 mg Tablet 650 MG PO (03:27)
[2020-01-12 05:28] LABS: Creatine Phosphokinase 492 U/L (39-308)
--- NOTE | 2020-01-12 05:30 | PC.NURSE ---
Received call from Jackelyn in the lab who reported critical CK 492. This result is significantly lower compared to result from yesterday.
[2020-01-12 06:00] VITALS: BP 94/56; PULSE 84; RESP 15; TEMP 36.7; O2SAT 97
--- NOTE | 2020-01-12 10:56 | P.PN_ITS ---
Subjective NPU Subjective: Interval history: Patient is much more alert today after a night sleep and the methamphetamine intoxication has worn off. He confirms the presence of clinical depression in the form of feelings of hopelessness, worthlessness, suicidal ideation, persistent dysphoria, and anhedonia. He denies the presence of auditory or visual hallucinations. He would like to go right to a year-long rehabilitation program where he will stay sober but mainly place that we will get him a job. 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 He is extremely despondent over the absence of his children. Mental Status Exam MSE Comments: Mental Status Exam: Appearance: hygiene is fair; no gross neurological deficits., gait is unremarkable; AIMS=0 Speech: Speech is of normal rate and rhythm and easily understood. Thought processes: Thought processes are concrete. Judgment is adequate for safety. Associations: intact Psychotic processes: There is no indication of guarding or paranoia. There is no attention to the internal stimuli. Auditory and visual hallucinations are denied. Judgment: Insight is fair. Problem solving skills are adequate for safety. Orientation: The patient is oriented to person, place time and situation. Memory: no deficits noted in immediate, intermediate, or remote spheres. Attention: The patient is alert and interpersonally engaged. Language: Verbalizations are coherent. Fund of knowledge: Fund of knowledge is poor. Affect/Mood: Affect is consistent with a depressed mood. Denied suicidal ideation Affective range is appropriate. Psychosis: perception impaired through cognitive distortion and intellectual deficit; reality testing intact. 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 Will provide a safe and therapeutic environment for patient.. Will continue inpatient treatment to allow for medication adjustment and monitoring. Will continue q15 min safety checks. The patient has had an independent psychiatric evaluation within the past 6 months detailing her primary diagnoses of substance abuse disorder. We are unaware of his participation in prior rehabilitation programs but that will be explored and he will be recommended for the most intense rehabilitation services that are available and appropriate to him. Further information will be required to assess whether he would respond to antidepressant treatment. Patient will be admitted to the adult psychiatric unit and entered into the full array of individual and group therapies as part of that unit protocol. They will be provided 24-hour access to trained psychiatric nursing care and monitoring. Potential benefits and side effects of medications were discussed as well as the time course of expected response to medication changes. No medications are initiated at this time. He is on a 96-hour involuntary commitment. Hospital day #2: Patient is much more alert today after a night sleep and the methamphetamine intoxication has worn off. He confirms the presence of clinical depression in the form of feelings of hopelessness, worthlessness, suicidal ideation, persistent dysphoria, and anhedonia. He denies the presence of auditory or visual hallucinations. He would like to go right to a year-long rehabilitation program where he will stay sober but mainly place that we will get him a job. 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 He is extremely despondent over the absence of his children. Plan: Initiate fluoxetine 20 mg daily. Potential benefits and side effects of this medication were discussed in detail and its use was agreed upon. Contingency plan should there be unexpected or intolerable side effects as discontinuation. Monitor patient's mood, sleep, appetite, and behavior closely. Encourage patient to participate in individual and group therapeutic sessions on the [place]. Estimated length of stay 5 days The expected benefits and potential side effects of patient's psychiatric medications were discussed with the patient. The patient understands and consents to treatment.CRITERIA FOR DISCHARGE: stable on medications and no longer an imminent risk Involuntary Hold Information 96 Hour Hold: 96 Hour Involuntary Admission: Yes 96 Hour Hold Ending Date: 01/17/20 96 Hour Hold Ending Time: 02:30 Attestations NPU Medical Necessity Statement*: Patient will remain in the hospital another 2-4 nights for assessment of medication efficacy and tolerability. Coding Level of Care Code Acute [employer] for Juaquin Fwd Diagnoses Major depression, single episode F32.9
[2020-01-12] MEDS: fluoxetine 20 mg Capsule PO (11:37)
[2020-01-12 14:00] VITALS: BP 95/60; PULSE 90; RESP 18; TEMP 36.6; O2SAT 98
[2020-01-12 20:58] VITALS: BP 104/67; PULSE 90; RESP 17; TEMP 37.1; O2SAT 97
[2020-01-13 06:00] VITALS: BP 108/73; PULSE 85; RESP 13; TEMP 36.6; O2SAT 98
[2020-01-13 07:03] LABS: Creatine Phosphokinase 151 U/L (39-308)
[2020-01-13] MEDS: fluoxetine 20 mg Capsule PO (08:26)
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
[2020-01-13 12:11] VITALS: BP 108/73; PULSE 85; RESP 13; TEMP 36.6; O2SAT 98
== END 2020-01-13 13:48 | disposition home or self-care (01) | DRG 885 ==
LOC: ER 01-11 02:46 → NP 01-11 07:21
PROVIDERS: Emergency Medicine; Admitting Provider Psychiatry & Neurology Psychiatry; PCP Family Medicine; Visit Provider Psychiatry & Neurology Psychiatry
DX: F32.2 Major depressive disorder, single episode, severe without psychotic features (principal); F15.129 Other stimulant abuse with intoxication, unspecified; F12.20 Cannabis dependence, uncomplicated; F79 Unspecified intellectual disabilities; Z87.891 Personal history of nicotine dependence
CPT/HCPCS: 12345; 36415; 36600; 71045; 80053; 80156; 80164; 80178; 80185; 80306; 80307; 81001; 81003; 82550; 82803; 83605; 83690; 83735; 84484; 85025; 93005; 93010; 99284; J2060; J2405; J7030

== ENCOUNTER 2020-03-19 23:17 | Inpatient (IN) | payer SELFPAY ==
[2020-03-19 23:30] VITALS: BP 154/89; PULSE 91; RESP 14; TEMP 36.9; O2SAT 98; BMI 23.6
--- NOTE | 2020-03-19 23:52 | XRR_ITS ---
PROCEDURE INFORMATION: Exam: XR Chest, 1 View Exam date and time: 03/20/2020 2:18 AM Age: 19 years old Clinical indication: Type not specified; Patient HX: Chest pain after meth use TECHNIQUE: Imaging protocol: XR of the chest Views: 1 view. COMPARISON: CR XR chest 1V portable [id number] 01/10/2020 11:42 PM FINDINGS: Lungs: Unremarkable. No consolidation. Pleural space: Unremarkable. No pleural effusion. No pneumothorax. Heart/Mediastinum: Unremarkable. No cardiomegaly. Bones/joints: Unremarkable. XR/XR chest 1V portable [id number] IMPRESSION: No acute findings.
--- NOTE | 2020-03-19 23:52 | ECG_ITS ---
[facility] Test Date: 2020-03-19 Pat Name: Liu Cisneros Department: Room: Gender: Male Wind Up Operator: TATIANA : 2000 Requested By: Ivory Ang Order Number: [id number] Venus MD: Floyd Quinteros M.D. Measurements Intervals [place] Rate: 81 P: 62 GA: 119 QRS: 103 QRSD: 95 T: 60 QT: 338 QTc: 393 Interpretive Statements SINUS RHYTHM WITH SHORT GA INTERVAL MARKED RIGHT AXIS DEVIATION [QRS AXIS > 100] Compared to ECG 01/11/2020 01:28:23 Short GA interval now present Sinus tachycardia no longer present Electronically Signed On 03-20-2020 13:20:07 CDT by Floyd Quinteros M.D. [id number]
[2020-03-20] VITALS (12 sets, daily range): BP systolic 118–158; BP diastolic 67–102; PULSE 72–134; RESP 16–18; TEMP 36.5–37.1; O2SAT 99–100
[2020-03-20 00:14] LABS: Basophils # 0.1 10^3/uL (0.0-0.1); Basophils % 0.5 %; Eosinophils # 0.1 10^3/uL (0.0-0.8); Eosinophils % 0.8 %; Hematocrit 50.1 % (42.0-52.0); Hemoglobin 16.3 g/dL (11.7-16.6); Lymphocytes # 2.2 10^3/uL (1.5-6.5); Mean Corpuscular HGB Conc 32.5 g/dL (30.0-36.0); Mean Corpuscular Volume 92.1 fL (80-94); Mean Platelet Volume 10.6 fL (7.4-10.4); Monocytes % 10.1 %; Neutrophils # 6.53 10^3/uL (1.8-8.0); Neutrophils % 66.3 %; Nucleated Red Blood Cells % 0 %; Platelet Count 335 10^3/cmm (130-400); Red Blood Count 5.44 10^6/uL (4.1-5.3); Red Cell Distribution Width 11.2 % (12.1-15.1); White Blood Count 9.8 10^3/uL (4.5-13.0)
[2020-03-20 00:36] LABS: INR 1.08 (0.8-1.2); Partial Thromboplastin Time 29.7 SECONDS (23.9-36.7)
[2020-03-20 00:39] LABS: D Dimer 0.49 ug/mIFEU (0-0.59)
[2020-03-20 00:43] LABS: Troponin(5th) Baseline 6 ng/L (0-15)
[2020-03-20 00:51] LABS: Alanine Aminotransferase 15 U/L (0-41); Albumin Level 4.7 g/dL (3.5-5.2); Alkaline Phosphatase 73 IU/L (40-130); Anion Gap 18.7 (5-19); Aspartate Amino Transferase 14 U/L (0-40); Blood Urea Nitrogen 10 mg/dL (6-20); Calcium 10.3 mg/dL (8.5-10.5); Carbon Dioxide 24 mmol/L (22-29); Chloride 100 mmol/L (98-107); Creatine Phosphokinase 94 U/L (39-308); Creatinine Clr Calc Pharmacy 132.3148; Globulin 2.5 g/dL (1.3-4.6); Glomerular Filtration Rate 107.6 mL/min (90-130); Glucose 108 mg/dL (65-115); Lipase 22 U/L (13-60); NT Pro B Type Natriuretic Pept 5 pg/mL (0-125); Osmolality Calculated 288 mOsm/kg (285-295); Potassium 3.7 mmol/L (3.5-5.1); Sodium 139 mmol/L (136-145); Total Bilirubin 0.7 mg/dL (0.15-1.2); Total Protein 7.2 g/dL (6.6-8.7)
--- NOTE | 2020-03-20 01:52 | ECG_ITS ---
[facility] Test Date: 2020-03-20 Pat Name: Liu Cisneros Department: Room: Gender: Male Home Care Attendant: : 2000 Requested By: Ivory Ang Order Number: [id number] Donovan MD: Floyd Quinteros M.D. Measurements Intervals [place] Rate: 74 P: 74 CA: 143 QRS: 95 QRSD: 98 T: 67 QT: 365 QTc: 406 Interpretive Statements SINUS RHYTHM BORDERLINE RIGHT AXIS DEVIATION [QRS AXIS > 90] Compared to ECG 01/11/2020 01:28:23 Sinus tachycardia no longer present Electronically Signed On 03-20-2020 13:22:31 CDT by Floyd Quinteros M.D. [id number]
[2020-03-20 01:55] LABS: Add Urine Microscopic? YES; Bilirubin Urine Neg (Negative); Blood Urine Neg (Negative); Glucose Urine UA Norm (Normal); Ketones Urine 1+ (Negative); Leukocyte Esterase Urine Negative (Negative); Nitrate Urine Negative (Negative); Protein Urine Neg (Negative); RBC Urine RARE /hpf (0-2); Specific Gravity, Urine 1.025 (1.005-1.030); Urine Appearance SL Hazy (CLEAR); Urine Color Yellow (Yellow); Urobilinogen Urine Norm (Negative); pH Urine 5 (5-7)
[2020-03-20 01:56] LABS: Bacteria Urine TRACE /hpf; Mucus Urine 2+ /hpf; Squamous Epithelial Cell Urine 0-4 /hpf (0-5); WBC Urine 0-4 /hpf (0-5)
[2020-03-20 01:57] LABS: Add Urine Culture? No; Sperm Urine 1+ /hpf
--- NOTE | 2020-03-20 01:59 | W.ED.GENADLT ---
HPI - General Adult General: Chief complaint: General Medical Stated complaint: CHEST PAIN, H/A, WANTS DETOX Time Seen by Provider: 03/20/20 01:32 Source: patient Mode of arrival: ambulatory Limitations: no limitations History of Present Illness: HPI narrative: Liu is a nice 19-year-old male who comes in complaining of malaise after shooting up methamphetamines. He had been sober for quite some time but then returned to using earlier this morning. He states he had a brief but then started to feel achy and like he would relapsed. He denies any fevers or chills. He did inject the methamphetamines. Says he just aches like he would in the past would come off meth. States he wants to find an outpatient facility to help him get clean again. He is denying any other complaints or concerns. Associated symptoms: Reports malaise; Deny chest pain, confusion, diaphoresis, dyspnea, headache(s), nausea, rash, palpitations, syncope or vomiting Review of Systems Const: Reports: body aches, fatigue and malaise; Denies: diaphoresis Eyes: Denies: change in vision, blurry vision, photophobia, eye discomfort, eye discharge, eye redness or yellow eyes ENMT: Denies: throat pain, odynophagia, hoarseness, swelling of lips/tongue, ear or mastoid pain, ear discharge, change in hearing or nasal discharge Card: Denies: chest pain, palpitations, irregular heart rhythm, edema, lightheadedness, syncope, pre-syncope, dyspnea on exertion or orthopnea Resp: Denies: dyspnea, productive cough, non-productive cough, wheezing, hemoptysis or chest congestion GI: Denies: abdominal pain, nausea, vomiting, hematemesis, coffee ground emesis, heartburn, diarrhea, constipation, GI cramping, hematochezia or melena : Denies: flank pain, dysuria, urinary frequency, urinary urgency or hematuria Musc: Denies: neck pain, back pain, extremity pain, extremity swelling, joint pain, joint swelling, joint redness, joint warmth or joint stiffness Skin/Breast: Denies: rash, pruritus, erythema, skin pain or skin tenderness Neuro: Denies: headache(s), numbness in extremities, weakness in extremities, sensory changes, lack of coordination, difficulty walking, dizziness, vertigo, confusion, Slurred speech present or seizure-like activity Edd/Lymph: Denies: easy bruising, easy bleeding, petechiae, purpura or enlarged lymph nodes All/Imm: Denies: urticaria, throat swelling, tongue swelling, facial swelling or acute wheezing PFSH ED PFSH: Medical History Amphetamine use disorder, severe Cannabis use disorder, severe, dependence Generalized anxiety disorder Social History Smoking and tobacco status: former smoker Quit status (tobacco): has quit using tobacco Year quit tobacco: 2019 Second hand smoke exposure: Yes Smoking risk assessment/counseling performed?: Yes Tobacco counseling given: counseling >3 minutes Current gender identity: Male Physical Exam Const: COMMON NORMALS: no acute distress, patient oriented x3, no limitations and alert GENERAL APPEARANCE: cooperative HENMT: COMMON NORMALS: normocephalic, atraumatic, external ears normal, EAC's normal and Normal external nose present HEAD & SCALP: normal to inspection, normocephalic and atraumatic FACE & SINUS: normal facial exam and face symmetric NOSE: Normal external nose present and Normal nares present EXTERNAL EAR: Yes external ears normal EXTERNAL AUDITORY CANAL: EAC's normal MOUTH: Normal oral and palatal mucosa present, lip normal and tongue normal Eye: COMMON NORMALS: Equal, round and reactive pupils present and conjunctivae normal GENERAL EYE: appearance normal, both eyes and all related structures ALIGNMENT: Yes alignment normal PERIORBITAL: periorbital findings normal EYELID: eyelids normal CONJUNCTIVA: Yes conjunctivae normal SCLERA: sclerae normal PUPIL: Yes Equal, round and reactive pupils present Neck/C-Spine: COMMON NORMALS: full ROM, no lymphadenopathy, supple, no meningeal signs and no JVD GENERAL: Yes normal visual inspection and Yes trachea midline Chest: COMMONS NORMALS: normal inspection of the chest and normal palpation of entire chest wall Resp: COMMON NORMALS: normal respiratory effort, No retractions, No use of accessory muscles and clear to auscultation bilaterally EFFORT & INSPECTION: Yes able to speak in complete sentences and Yes symmetric chest movement AUSCULTATION: clear to auscultation bilaterally, no crackles, no rales, no rhonchi and no wheezes Cardio: COMMON NORMALS: no JVD, regular rate, regular rhythm, S1 normal heart sound present and S2 normal heart sound present RATE: regular rate RHYTHM: regular rhythm HEART SOUNDS: S1 normal heart sound present, S2 normal heart sound present, no click, no gallops, no murmurs and no rubs GI: COMMON NORMALS: Soft to palpation and No hepatosplenomegaly present PALPATION: Yes Soft to palpation, No Tenderness to palpation present (GI), No Guarding due to palpation present (GI), No Rigid due to palpation, Yes No hepatosplenomegaly present, No Hernia present, No Palpable mass present and No Pulsatile mass present : COMMON NORMALS: Yes no CVA tenderness BLADDER/KIDNEY EXAM: Yes no CVA tenderness Back/Pelvis: COMMON NORMALS: no CVA tenderness, thoracic and lumbar spine normal to inspection, no thoracic nor lumbar tenderness and thoraco-lumbar ROM normal Extremity: COMMON NORMALS: normal to inspection, full ROM, capillary refill normal, no joint enlargement, no clubbing, cyanosis or edema and no calf tenderness Neuro: COMMON NORMALS: patient oriented x3, CN's II-XII intact bilaterally, moves all extremities, no focal motor deficits and no sensory deficits noted SENSORIUM/ORIENTATION: Yes alert MENINGEAL SIGNS: Yes no meningeal signs SPEECH: speech normal Psych: COMMON NORMALS: mental status grossly normal, Normal thought process present, cooperative, normal affect, speech normal and activity/motor behavior normal SPEECH: Yes normal speech THOUGHT PROCESS: Normal thought process present Skin: COMMON NORMALS: no rashes or lesions noted, turgor normal, no jaundice, no petechiae and no mottling GENERAL SKIN EXAM: no rashes or lesions noted and turgor normal Procedures EJ/Peripheral Line Arm L: Time Out Performed: Yes Skin Cleansed in Sterile Fashion: Yes Size (gauge): 18 IV Secured and Dressing Applied: Yes Patient Tolerated Procedure: well and no complications Additional Comments: Ultrasound utilized for procedure Course Vital Signs: Vital signs: Vital Signs Temperature 98.4 F 03/19/20 23:30 Pulse Rate 73 03/20/20 03:03 Respiratory Rate 18 03/20/20 02:52 Blood Pressure 147/98 03/20/20 03:03 Pulse Oximetry 100 03/20/20 03:03 MDM - General Adult MDM Narrative: Medical decision making narrative: Patient's laboratory work-up is unremarkable. He is feeling better after the IV fluids and medicines has been given here. He agrees to return should his symptoms change or worsen but at this time he is feeling better and would like to be discharged. Patient now states that he is somewhat suicidal but does not have a specific plan what he will do to hurt himself. He states that relapsing is made him upset and depressed and he needs help to break the cycle. The case was reviewed with Dr. Díaz he agrees to accept the patient in admission. Lab Data: Attestation: I reviewed the patient's lab results. Labs: Lab Results 03/19/20 03/19/20 03/19/20 Range/Units 23:58 23:58 23:58 WBC 9.8 (4.5-13.0) 10^3/ uL RBC 5.44 H (4.1-5.3) 10^6/u L Hgb 16.3 (11.7-16.6) g/dL Hct 50.1 (42.0-52.0) % MCV 92.1 (80-94) fL MCH 30.0 (28.0-34.0) pg MCHC 32.5 (30.0-36.0) g/dL RDW 11.2 L (12.1-15.1) % Plt Count 335 (130-400) 10^3/c mm MPV 10.6 H (7.4-10.4) fL Neut % (Auto) 66.3 % Lymph % (Auto) 22.0 % [place] % (Auto) 10.1 % Eos % (Auto) 0.8 % Baso % (Auto) 0.5 % Neut # (Auto) 6.53 (1.8-8.0) 10^3/u L Lymph # (Auto) 2.2 (1.5-6.5) 10^3/u L [place] # (Auto) 1.0 H (0.2-0.9) 10^3/u L Eos # (Auto) 0.1 (0.0-0.8) 10^3/u L Baso # (Auto) 0.1 (0.0-0.1) 10^3/u L Nucleated RBC % (a uto) 0 % Nucleated RBCs # 0.0 /100WBC PT 14.40 (12.1-14.9) SECO NDS INR 1.08 (0.8-1.2) APTT 29.7 (23.9-36.7) SECO NDS D-Dimer 0.49 (0-0.59) ug/mIFE U Sodium 139 (136-145) mmol/L Potassium 3.7 (3.5-5.1) mmol/L Chloride 100 (98-107) mmol/L Carbon Dioxide 24 (22-29) mmol/L Anion Gap 18.7 (5-19) BUN 10 (6-20) mg/dL Creatinine 0.9 (0.7-1.2) mg/dL GFR Calculation 107.6 (90-130) mL/min Glucose 108 (65-115) mg/dL Calculated Osmolal ity 288 (285-295) mOsm/k g Calcium 10.3 (8.5-10.5) mg/dL Total Bilirubin 0.7 (0.15-1.2) mg/dL AST 14 (0-40) U/L ALT 15 (0-41) U/L Alkaline Phosphata se 73 (40-130) IU/L Creatine Kinase 94 (39-308) U/L Troponin T Baselin e (0-15) ng/L NT-Pro-B Natriuret Pep 5 (0-125) pg/mL Total Protein 7.2 (6.6-8.7) g/dL Albumin 4.7 (3.5-5.2) g/dL Globulin 2.5 (1.3-4.6) g/dL Lipase 22 (13-60) U/L Urine Color (Yellow) Urine Appearance (CLEAR) Urine pH (5-7) Ur Specific Gravit y (1.005-1.030) Urine Protein (Negative) Urine Glucose (UA) (Normal) Urine Ketones (Negative) Urine Blood (Negative) Urine Nitrate (Negative) Urine Bilirubin (Negative) Urine Urobilinogen (Negative) mg/dL Ur Leukocyte Becky ase (Negative) Urine RBC (0-2) /hpf Urine WBC (0-5) /hpf Ur Squamous Epith Cells (0-5) /hpf Amorphous Sediment Urine Bacteria (NONE) /hpf Urine Mucus /hpf Urine Sperm /hpf Urine Opiates Scre en (Negative) ng/mL Ur Barbiturates Sc reen (Negative) ng/mL Ur Phencyclidine S crn (Negative) ng/mL Ur Amphetamines Sc reen (Negative) ng/mL U Benzodiazepines Scrn (Negative) ng/mL Urine Cocaine Scre en (Negative) ng/mL U Marijuana (THC) Screen (Negative) ng/mL 03/19/20 03/20/20 03/20/20 Range/Units 23:58 01:25 01:25 WBC (4.5-13.0) 10^3/ uL RBC (4.1-5.3) 10^6/u L Hgb (11.7-16.6) g/dL Hct (42.0-52.0) % MCV (80-94) fL MCH (28.0-34.0) pg MCHC (30.0-36.0) g/dL RDW (12.1-15.1) % Plt Count (130-400) 10^3/c mm MPV (7.4-10.4) fL Neut % (Auto) % Lymph % (Auto) % [place] % (Auto) % Eos % (Auto) % Baso % (Auto) % Neut # (Auto) (1.8-8.0) 10^3/u L Lymph # (Auto) (1.5-6.5) 10^3/u L [place] # (Auto) (0.2-0.9) 10^3/u L Eos # (Auto) (0.0-0.8) 10^3/u L Baso # (Auto) (0.0-0.1) 10^3/u L Nucleated RBC % (a uto) % Nucleated RBCs # /100WBC PT (12.1-14.9) SECO NDS INR (0.8-1.2) APTT (23.9-36.7) SECO NDS D-Dimer (0-0.59) ug/mIFE U Sodium (136-145) mmol/L Potassium (3.5-5.1) mmol/L Chloride (98-107) mmol/L Carbon Dioxide (22-29) mmol/L Anion Gap (5-19) BUN (6-20) mg/dL Creatinine (0.7-1.2) mg/dL GFR Calculation (90-130) mL/min Glucose (65-115) mg/dL Calculated Osmolal ity (285-295) mOsm/k g Calcium (8.5-10.5) mg/dL Total Bilirubin (0.15-1.2) mg/dL AST (0-40) U/L ALT (0-41) U/L Alkaline Phosphata se (40-130) IU/L Creatine Kinase (39-308) U/L Troponin T Baselin e 6 (0-15) ng/L NT-Pro-B Natriuret Pep (0-125) pg/mL Total Protein (6.6-8.7) g/dL Albumin (3.5-5.2) g/dL Globulin (1.3-4.6) g/dL Lipase (13-60) U/L Urine Color Yellow (Yellow) Urine Appearance Sl hazy (CLEAR) Urine pH 5 (5-7) Ur Specific Gravit y 1.025 (1.005-1.030) Urine Protein Neg (Negative) Urine Glucose (UA) Norm (Normal) Urine Ketones 1+ H (Negative) Urine Blood Neg (Negative) Urine Nitrate Negative (Negative) Urine Bilirubin Neg (Negative) Urine Urobilinogen Norm (Negative) mg/dL Ur Leukocyte Becky ase Negative (Negative) Urine RBC Rare (0-2) /hpf Urine WBC 0-4 H (0-5) /hpf Ur Squamous Epith Cells 0-4 H (0-5) /hpf Amorphous Sediment Not Reportable Urine Bacteria Trace (NONE) /hpf Urine Mucus 2+ /hpf Urine Sperm 1+ /hpf Urine Opiates Scre en Negative (Negative) ng/mL Ur Barbiturates Sc reen Negative (Negative) ng/mL Ur Phencyclidine S crn Negative (Negative) ng/mL Ur Amphetamines Sc reen Positive H (Negative) ng/mL U Benzodiazepines Scrn Negative (Negative) ng/mL Urine Cocaine Scre en Negative (Negative) ng/mL U Marijuana (THC) Screen Positive H (Negative) ng/mL Imaging Data^: CXR: Attestation: I personally reviewed and interpreted this imaging study as follows: My impression: No acute cardiopulmonary findings EKG Data^: EKG 1: Attestation: I personally reviewed and interpreted this EKG as follows: EKG interpretation date: 03/20/20 EKG interpretation time: 01:40 Interpretation: Normal sinus rhythm at 74 beats a minute, peak T waves, normal axis, no blocks, no intervals, nonspecific ST and T wave changes. Discharge Plan Discharge Patient Disposition: Admitted As Inpatient Clinical Impression: Polysubstance abuse, Suicidal ideations Condition: Stable Prescriptions: New Zofran 4 mg tablet 4 mg PO Q6H PRN (Reason: nausea and vomiting) Qty: 20 RF: 0 No Action trazodone 50 mg Tablet 50 mg PO BEDTIME PRN (Reason: Sleep) Qty: 20 RF: 4 fluoxetine 20 mg Capsule 20 mg PO DAILY Qty: 30 RF: 4 hydroxyzine pamoate 25 mg Capsule 50 mg PO Q6H PRN (Reason: Anxiety) Qty: 30 RF: 4 Discharge Orders: Discharge Order (Routine); Ordered 03/20/20 Ordered By: Ivory Anderson Referrals: Jose Cobb MD [Primary Care Provider] - 1-3 days Patient Instructions: Polysubstance Abuse (ED) Activity Restrictions/Additional Instructions: Please return to the ER immediately for any of the signs or symptoms listed on your discharge instruction sheets, worsening/changing of your symptoms, you are not getting better as quickly as expected, or for ANY other cause or concerns. 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
[2020-03-20] MEDS: acetaminophen 500 mg Tablet 1000 MG PO (02:02)
[2020-03-20] MEDS: ondansetron 2 mg/ML SDV 2 mL 4 MG IVP (02:03)
[2020-03-20 02:09] LABS: Amphetamines Screen Urine Positive (Negative); Barbiturates Screen Urine Negative (Negative); Benzodiazepines Screen Urine Negative (Negative); Cocaine Screen Urine Negative (Negative); Opiate Screen Urine Negative (Negative); PCP Screen Urine Negative (Negative); THC Screen Urine Positive (Negative)
[2020-03-20] MEDS: sodium chloride 0.9% 1,000 ML 999 ML IV ×2 (02:12→03:10)
[2020-03-20 05:31] LABS: Acetaminophen < 5.0 ug/mL (10-30); Alcohol Level < 10 mg/dL (0-10); Salicylate < 0.3 mg/dL (3-10)
--- NOTE | 2020-03-20 06:41 | PC.NURSE ---
Skin assessment revealed no wounds or abnormalities.
[2020-03-20] MEDS: acetaminophen 325 mg Tablet 650 MG PO ×2 (08:01→14:17)
[2020-03-20] MEDS: hyDROXYzine 25 mg Capsule 50 MG PO ×2 (09:04→20:39)
--- NOTE | 2020-03-20 09:05 | PC.NURSE ---
PRN VISTARIL 50 MG GIVEN PO PER PT C/O STATED ANXIETY.
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
[2020-03-20] MEDS: trazodone 50 mg Tablet PO (20:39)
[2020-03-21 06:00] VITALS: BP 120/63; PULSE 89; RESP 17; TEMP 36.7; O2SAT 98
--- NOTE | 2020-03-21 13:21 | NPU.GN ---
Liu seemed to really enjoy the topic of forgiveness. He spoke up quite a few times during the session and had a lot of positive things to add.
[2020-03-21 14:00] VITALS: BP 93/64; PULSE 112; RESP 18; TEMP 36.8; O2SAT 99
[2020-03-21] MEDS: acetaminophen 325 mg Tablet 650 MG PO (14:39)
--- NOTE | 2020-03-21 15:55 | PM.NPN ---
Subjective NPU Subjective: Interval history: Adilson presents today reporting that he did talk to his baby's mother, but identifies that she is someone that he needs to keep away from if he wants to manage his sobriety. He reports that he does not want to reengage in drug use he knows where that leads. He reports he has a best friend whom is out of town. He is thinking about going to stay with them and trying to manage his recovery from there. He is interested in the naltrexone but is aware that there is a cost challenge that we may need to solve as it would not make sense for us to start the medication only for him to not get it tomorrow. We discussed the risk benefits and alternatives of a possible discharge tomorrow and he understood and agreed to proceed as is documented in this note. He was not interested in starting an antidepressant as he says that his depression and anxiety are clear offshoot of his active addiction. Mental Status Exam MSE Comments: This is a well-nourished well-developed white male with adequate dress, grooming and eye contact. No abnormal movements except for improving psychomotor retardation. Cooperative with exam no acute distress. Speech was more normal rate and volume. Mood described as a little better, affect congruent. Thought process, organized. Thought content: Patient denied any suicidal or homicidal ideations, there were no delusions noted but he did endorse some paranoia, he denied any auditory or visual hallucinations. Attention and concentration were intact and memory appeared reliable but none were formally tested. He is alert and oriented x3. Insight and judgment are fair, impulse control is limited. Vitals/I&O/Wt Last Vital Signs Temp 98.4 F 03/21/20 22:00 Pulse 90 03/21/20 22:00 Resp 18 03/21/20 22:00 BP 94/53 03/21/20 22:00 Pulse Ox 99 03/21/20 22:00 Data NPU : 03/19/20 23:58 03/19/20 23:58 A&P Additional A&P Information (1) Polysubstance abuse: (2) Suicidal ideations: (3) Major depression, single episode: (4) Amphetamine use disorder, severe: (5) Cannabis use disorder, severe, dependence: (6) Alcohol use: This is a 19-year-old white male with a long history of addiction and current depression with recent relapse who presents open to possible treatment but wants to think about it. 1. Continue current medication. He is not interested in any medication for depression or anxiety but would like to explore whether we can assist him in getting naltrexone. 2. Continue to 15-minute checks for safety. 3. Encourage individual, group and milieu therapy. 4. Encourage sober living treatment at the highest level of care to which he is willing to commit. Involuntary Hold Information 96 Hour Hold: 96 Hour Involuntary Admission: No 96 Hour Hold Ending Date: 01/17/20 96 Hour Hold Ending Time: 02:30 Attestations NPU Medical Necessity Statement*: Inpatient hospitalization is medically necessary and the clinically appropriate intervention at this time. We will monitor medications and make changes as indicated. Likely length of stay 1-3 days. 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
[2020-03-21 22:00] VITALS: BP 94/53; PULSE 90; RESP 18; TEMP 36.9; O2SAT 99
[2020-03-21] MEDS: hyDROXYzine 25 mg Capsule 50 MG PO (22:11)
[2020-03-21] MEDS: trazodone 50 mg Tablet PO (22:12)
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
[2020-03-22 06:00] VITALS: BP 93/54; PULSE 70; RESP 16; TEMP 36.7; O2SAT 98
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
[2020-03-22 12:22] VITALS: BP 93/54; PULSE 70; RESP 16; TEMP 36.7; O2SAT 98
[2020-03-22 22:00] VITALS: BP 93/54; PULSE 70; RESP 16; TEMP 36.7; O2SAT 98
== END 2020-03-22 13:22 | disposition home or self-care (01) | DRG 885 ==
LOC: ER 03-20 03:58 → NP 03-20 05:00
PROVIDERS: Emergency Medicine; Admitting Provider Psychiatry & Neurology Psychiatry; PCP Family Medicine; Visit Provider Psychiatry & Neurology Psychiatry
DX: F32.2 Major depressive disorder, single episode, severe without psychotic features (principal); R45.851 Suicidal ideations; F15.20 Other stimulant dependence, uncomplicated; F19.10 Other psychoactive substance abuse, uncomplicated; F10.10 Alcohol abuse, uncomplicated; F12.20 Cannabis dependence, uncomplicated; Z62.810 Personal history of physical and sexual abuse in childhood; Z62.819 Personal history of unspecified abuse in childhood
CPT/HCPCS: 12345; 71045; 80053; 80306; 80307; 81001; 82550; 83690; 83880; 84484; 85025; 85378; 85610; 85730; 93005; 99283; J2405; J7030

== ENCOUNTER → 2020-04-09 13:13 | Outpatient (BNVA) | payer SELFPAY | PROVIDERS: PCP Family Medicine; Visit Provider Nurse Practitioner | DX: Z20.2 Contact with and (suspected) exposure to infections with a predominantly sexual mode of transmission (principal); A60.00 Herpesviral infection of urogenital system, unspecified | CPT/HCPCS: 87491; 87591 ==

== ENCOUNTER 2020-05-02 10:32 | Emergency (ER) | payer SELFPAY ==
[2020-05-02 10:54] VITALS: BP 125/81; PULSE 123; RESP 16; TEMP 36.8; O2SAT 97; BMI 22.8
--- NOTE | 2020-05-02 10:58 | US_ITS ---
WS: [id number] SCROTAL ULTRASOUND REASON FOR EXAM: pain COMPARISON: None available. TECHNIQUE: Grayscale and duplex color Doppler ultrasound examination of the scrotum. FINDINGS: RIGHT: Right testes measures 3.7 cm x 2.5 cm x 2.3 cm. Right epididymis measures 0.8 cm x 0.9 cm x 0.8 cm. Normal arterial flow. No hydrocele. LEFT: Left testes measures 3.6 cm x 2.6 cm x 2.2 cm. Left epididymis measures 1.0 cm x 1.1 cm x 0.8 cm. No hydrocele. Normal arterial flow. Varicocele noted which enlarged with Valsalva. Patient reported increased pain with Valsalva. US/US scrotum [id number] IMPRESSION: Left scrotal varicocele.
--- NOTE | 2020-05-02 11:35 | PC.NURSE ---
ultrasound in room
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
[2020-05-02 11:57] VITALS: BP 128/76; RESP 15; O2SAT 97
[2020-05-02 12:03] LABS: Add Urine Microscopic? NO
[2020-05-02 12:24] LABS: Bilirubin Urine Neg (Negative); Blood Urine Neg (Negative); Glucose Urine UA Norm (Normal); Ketones Urine Negative (Negative); Leukocyte Esterase Urine Negative (Negative); Nitrate Urine Negative (Negative); Protein Urine Neg (Negative); Specific Gravity, Urine 1.015 (1.005-1.030); Urine Appearance Clear (CLEAR); Urine Color Yellow (Yellow); Urobilinogen Urine Neg (Negative); pH Urine 7 (5-7)
[2020-05-02 13:07] VITALS: BP 135/83; PULSE 116; RESP 17; O2SAT 100
--- NOTE | 2020-05-02 14:11 | DCPLANNER ---
digital project manager had message to schedule a follow up appointment for patient with Dr. Grijalva. digital project manager called the office of Dr. Grijalva, spoke with Krissy, gave clinic patients information. digital project manager was told that patients information would be printed and reviewed. Clinic will call patient with appointment information.
--- NOTE | 2020-05-09 11:07 | DCPLANNER ---
Patient has a follow up appointment for patient with Dr. Grijalva, scheduled for , June 07, 2020 at 10:00. Clinic will call patient with appointment information.
--- NOTE | 2020-07-10 08:52 | DCPLANNER ---
Patient had a follow up appointment scheduled for 06.07.[address] Grijalva - patient attended appointment.
== END 2020-05-02 13:08 | disposition home or self-care (01) ==
PROVIDERS: Nurse Practitioner Family; Emergency Provider Family Medicine
DX: I86.1 Scrotal varices (principal); Z87.891 Personal history of nicotine dependence
CPT/HCPCS: 12345; 76870; 81003; 99281; 99282

== ENCOUNTER 2020-07-05 19:23 | Inpatient (IN) | payer SELFPAY ==
[2020-07-05 19:37] VITALS: BP 158/89; PULSE 125; RESP 18; TEMP 36.9; O2SAT 98; BMI 22.8
--- NOTE | 2020-07-05 19:45 | ECG_ITS ---
[facility] Test Date: 2020-07-05 Pat Name: Liu Cisneros Department: Room: Gender: Male Business Services Clerk: : 2000 Requested By: Garrett Lu Order Number: [id number] Donovan MD: Shabana Barrera M.D. Measurements Intervals Hines Rate: 111 P: 77 CA: 140 QRS: 95 QRSD: 96 T: 55 QT: 320 QTc: 435 Interpretive Statements SINUS TACHYCARDIA BORDERLINE RIGHT AXIS DEVIATION [QRS AXIS > 90] Compared to ECG 03/20/2020 01:40:51 Sinus rhythm no longer present Electronically Signed On 07-06-2020 22:13:27 FIREWORKS ASSEMBLER by Shabana Barrera M.D. [id number]
[2020-07-05] MEDS: sodium chloride 0.9% 1,000 ML 999 ML IV (19:55)
--- NOTE | 2020-07-05 20:02 | W.ED.PSYCH ---
HPI - Psych General: Chief Complaint: Psychiatric Symptoms Stated Complaint: SI Time Seen by Provider: 07/05/20 19:42 History of Present Illness: HPI Narrative: The patient is a 19-year-old male who comes to the ER complaining of suicidal ideations. He is also a chronic methamphetamine abuser and admits to using it yesterday evening most recently. His heart rate is 125 on arrival. He also admits to not eating or drinking very much today. He says he has had not made an attempt to hurt himself today but about a week ago he made several cuts across his left forearm which are healing. complaint: suicidal ideation and feels depressed Context: recent drug abuse Associated psychiatric symptoms: suicidal ideation Associated symptoms: Reports no associated symptoms, depression and suicidal ideation If self harm: admits thoughts of self harm Review of Systems General: Reports: 10 or more systems reviewed and unremarkable except in HPI and below Const: Denies: fatigue Eyes: Denies: change in vision, blurry vision or eye redness ENMT: Denies: throat pain, swelling of lips/tongue, ear or mastoid pain or nasal congestion Card: Denies: chest pain, palpitations, irregular heart rhythm, edema, dyspnea on exertion or orthopnea Resp: Denies: dyspnea, productive cough or non-productive cough GI: Denies: abdominal pain, diarrhea or GI cramping : Denies: flank pain, urinary frequency or urinary urgency Musc: Denies: neck pain, back pain, extremity pain, joint pain, joint redness, limited range of motion or muscle weakness Skin/Breast: Denies: rash, pruritus, erythema, skin pain or skin tenderness Neuro: Denies: headache(s), numbness in extremities, weakness in extremities, sensory changes, difficulty walking, dizziness, confusion or Slurred speech present Psych: Reports: depression and suicidal ideation Endo: Denies: polyuria All/Imm: Denies: urticaria, throat swelling or tongue swelling PFSH ED PFSH: Medical History (Updated 07/05/20 @ 21:19 by Garrett Lu MD) Amphetamine use disorder, severe Cannabis use disorder, severe, dependence Generalized anxiety disorder Family History Mother Cancer cervical Father Heart disease Social History Smoking and tobacco status: former smoker Quit status (tobacco): has quit using tobacco Year quit tobacco: 2019 Second hand smoke exposure: Yes Smoking risk assessment/counseling performed?: Yes Tobacco counseling given: counseling >3 minutes Alcohol intake: former Marital status: Single Current occupational status: unemployed History of recent travel: No Current gender identity: Male Physical Exam Const: COMMON NORMALS: no acute distress, average body habitus, patient oriented x3, no limitations, healthy appearing, alert and well nourished GENERAL APPEARANCE: cooperative, comfortable, well kempt and well developed ORIENTATION/CONSCIOUSNESS: Yes awake, Yes oriented to person, Yes oriented to place and Yes oriented to time HENMT: COMMON NORMALS: normocephalic, external ears normal and Normal external nose present HEAD & SCALP: normal to inspection and normocephalic NOSE: Normal external nose present EXTERNAL EAR: Yes external ears normal MOUTH: Normal oral and palatal mucosa present THROAT: posterior oropharynx normal Eye: COMMON NORMALS: Equal, round and reactive pupils present and EOMs intact bilaterally GENERAL EYE: appearance normal, both eyes and all related structures PUPIL: Yes Equal, round and reactive pupils present Neck/C-Spine: COMMON NORMALS: full ROM, no lymphadenopathy, no meningeal signs and no JVD GENERAL: Yes normal visual inspection Lymph: LYMPHATIC: no lymphadenopathy noted Chest: COMMONS NORMALS: normal inspection of the chest and normal palpation of entire chest wall Resp: COMMON NORMALS: normal respiratory effort, No retractions, No use of accessory muscles, clear to auscultation bilaterally and percussion normal EFFORT & INSPECTION: Yes able to speak in complete sentences AUSCULTATION: clear to auscultation bilaterally PERCUSSION: percussion normal Cardio: COMMON NORMALS: no JVD, regular rate, regular rhythm, S1 normal heart sound present, S2 normal heart sound present and Peripheral pulses 2+ throughout RATE: regular rate RHYTHM: regular rhythm HEART SOUNDS: S1 normal heart sound present and S2 normal heart sound present PERIPHERAL PULSES: Peripheral pulses 2+ throughout GI: COMMON NORMALS: Normal to inspection, nondistended, normoactive bowel sounds present, Soft to palpation, non-tender and no masses INSPECTION: Yes normal to inspection PALPATION: Yes Soft to palpation : COMMON NORMALS: Yes no CVA tenderness BLADDER/KIDNEY EXAM: Yes no CVA tenderness Back/Pelvis: COMMON NORMALS: no CVA tenderness, thoracic and lumbar spine normal to inspection, no thoracic nor lumbar tenderness and thoraco-lumbar ROM normal Extremity: COMMON NORMALS: normal to inspection, full ROM, capillary refill normal, no joint enlargement and no pedal edema GENERAL: Yes normal exam except as noted Neuro: COMMON NORMALS: patient oriented x3, CN's II-XII intact bilaterally, moves all extremities, no focal motor deficits, no sensory deficits noted and gait normal SENSORIUM/ORIENTATION: Yes alert, Yes oriented to person, Yes oriented to place and Yes oriented to time MENINGEAL SIGNS: Yes no meningeal signs Psych: COMMON NORMALS: mental status grossly normal, Normal thought process present, cooperative, normal affect and speech normal APPEARANCE: Yes well kempt ATTITUDE: Yes calm SPEECH: Yes normal speech THOUGHT PROCESS: Normal thought process present Skin: COMMON NORMALS: no rashes or lesions noted NARRATIVE SKIN EXAM: Normal except left forearm he has several superficial cuts which are healing in approximately aged a week. GENERAL SKIN EXAM: no rashes or lesions noted MDM - Psych MDM Narrative: Medical decision making narrative: Patient comes to the ER complaining of suicidal ideations. He is a methamphetamine abuser. He was given IV fluids and Dr. Díaz accepted to neuropsych. Lab Data: Labs: Lab Results 07/05/20 07/05/20 07/05/20 Range/Units 19:45 19:45 20:35 WBC 15.3 H (4.5-13.0) 10^3/ uL RBC 5.14 (4.1-5.3) 10^6/u L Hgb 15.2 (11.7-16.6) g/dL Hct 45.8 (42.0-52.0) % MCV 89.1 (80-94) fL MCH 29.6 (28.0-34.0) pg MCHC 33.2 (30.0-36.0) g/dL RDW 11.9 L (12.1-15.1) % Plt Count 355 (130-400) 10^3/c mm MPV 10.7 H (7.4-10.4) fL Neut % (Auto) 65.0 % Lymph % (Auto) 19.1 % [place] % (Auto) 15.2 % Eos % (Auto) 0.1 % Baso % (Auto) 0.3 % Neut # (Auto) 9.93 H (1.8-8.0) 10^3/u L Lymph # (Auto) 2.9 (1.5-6.5) 10^3/u L [place] # (Auto) 2.3 H (0.2-0.9) 10^3/u L Eos # (Auto) 0.0 (0.0-0.8) 10^3/u L Baso # (Auto) 0.1 (0.0-0.1) 10^3/u L Nucleated RBC % (a uto) 0 % Nucleated RBCs # 0.0 /100WBC Sodium 137 (136-145) mmol/L Potassium 3.3 L (3.5-5.1) mmol/L Chloride 98 (98-107) mmol/L Carbon Dioxide 24 (22-29) mmol/L Anion Gap 18.3 (5-19) BUN 11 (6-20) mg/dL Creatinine 0.8 (0.7-1.2) mg/dL GFR Calculation 123.2 (90-130) mL/min Glucose 103 (65-115) mg/dL Calculated Osmolal ity 284 L (285-295) mOsm/k g Calcium 9.9 (8.5-10.5) mg/dL Total Bilirubin 0.5 (0.15-1.2) mg/dL AST 37 (0-40) U/L ALT 23 (0-41) U/L Alkaline Phosphata se 65 (40-130) IU/L Total Protein 7.6 (6.6-8.7) g/dL Albumin 4.7 (3.5-5.2) g/dL Globulin 2.9 (1.3-4.6) g/dL TSH 4.11 (0.27-4.20) uIU/ mL Urine Color Straw (Yellow) Urine Appearance Clear (CLEAR) Urine pH 8 H (5-7) Ur Specific Gravit y 1.010 (1.005-1.030) Urine Protein Neg (Negative) Urine Glucose (UA) Norm (Normal) Urine Ketones Negative (Negative) Urine Blood Neg (Negative) Urine Nitrate Negative (Negative) Urine Bilirubin Neg (Negative) Prot Sulfosalicyli c Acd Negative (Negative) Urine Urobilinogen Norm (Negative) mg/dL Ur Leukocyte Becky ase Negative (Negative) Salicylates < 0.3 L (3-10) mg/dL Acetaminophen < 5.0 L (10-30) ug/mL Ethyl Alcohol < 10 (0-10) mg/dL Discharge Plan Discharge Patient Disposition: Admitted As Inpatient Clinical Impression: Suicidal ideation Condition: Stable Coding Level of Care Code ED [facility] Attendant for Juaquin Fwd Exam Comprehensive
[2020-07-05 20:06] LABS: Basophils # 0.1 10^3/uL (0.0-0.1); Basophils % 0.3 %; Eosinophils % 0.1 %; Hematocrit 45.8 % (42.0-52.0); Hemoglobin 15.2 g/dL (11.7-16.6); Lymphocytes # 2.9 10^3/uL (1.5-6.5); Lymphocytes % 19.1 %; Mean Corpuscular HGB Conc 33.2 g/dL (30.0-36.0); Mean Corpuscular Hemoglobin 29.6 pg (28.0-34.0); Mean Corpuscular Volume 89.1 fL (80-94); Mean Platelet Volume 10.7 fL (7.4-10.4); Monocytes # 2.3 10^3/uL (0.2-0.9); Monocytes % 15.2 %; Neutrophils # 9.93 10^3/uL (1.8-8.0); Nucleated Red Blood Cells % 0 %; Platelet Count 355 10^3/cmm (130-400); Red Blood Count 5.14 10^6/uL (4.1-5.3); Red Cell Distribution Width 11.9 % (12.1-15.1); White Blood Count 15.3 10^3/uL (4.5-13.0)
[2020-07-05 20:44] LABS: Alanine Aminotransferase 23 U/L (0-41); Albumin Level 4.7 g/dL (3.5-5.2); Alkaline Phosphatase 65 IU/L (40-130); Anion Gap 18.3 (5-19); Aspartate Amino Transferase 37 U/L (0-40); Blood Urea Nitrogen 11 mg/dL (6-20); Calcium 9.9 mg/dL (8.5-10.5); Carbon Dioxide 24 mmol/L (22-29); Chloride 98 mmol/L (98-107); Globulin 2.9 g/dL (1.3-4.6); Glomerular Filtration Rate 123.2 mL/min (90-130); Glucose 103 mg/dL (65-115); Osmolality Calculated 284 mOsm/kg (285-295); Potassium 3.3 mmol/L (3.5-5.1); Sodium 137 mmol/L (136-145); Thyroid Stimulating Hormone 4.11 uIU/mL (0.27-4.20); Total Bilirubin 0.5 mg/dL (0.15-1.2); Total Protein 7.6 g/dL (6.6-8.7)
[2020-07-05 20:49] LABS: Acetaminophen < 5.0 ug/mL (10-30); Alcohol Level < 10 mg/dL (0-10); Salicylate < 0.3 mg/dL (3-10)
[2020-07-05 21:06] LABS: Add Urine Microscopic? NO
[2020-07-05 21:08] LABS: Bilirubin Urine Neg (Negative); Blood Urine Neg (Negative); Glucose Urine UA Norm (Normal); Ketones Urine Negative (Negative); Leukocyte Esterase Urine Negative (Negative); Nitrate Urine Negative (Negative); Protein Urine Neg (Negative); Sulfosalicylic Acid Urine Negative (Negative); Urine Appearance Clear (CLEAR); Urine Color Straw (Yellow); Urobilinogen Urine Norm (Negative); pH Urine 8 (5-7)
[2020-07-05] MEDS: potassium chloride ER 20 mEq Tablet PO (21:16)
[2020-07-05 21:17] LABS: Amphetamines Screen Urine Negative (Negative); Barbiturates Screen Urine Negative (Negative); Benzodiazepines Screen Urine Negative (Negative); Cocaine Screen Urine Negative (Negative); Opiate Screen Urine Negative (Negative); PCP Screen Urine Negative (Negative); THC Screen Urine Positive (Negative)
[2020-07-05 22:42] VITALS: BP 146/88; PULSE 116; RESP 22; O2SAT 98
[2020-07-05 22:43] VITALS: BP 126/72; PULSE 112; RESP 18; TEMP 36.7; O2SAT 98
--- NOTE | 2020-07-05 23:08 | PC.NURSE ---
IV removed 2234 from Right forearm. Pt arrived on NPU unit with IV still in arm. Tolerated removal well. Removed by Narda Sheikh RN.
[2020-07-05] MEDS: hyDROXYzine 25 mg Capsule 50 MG PO (23:21)
[2020-07-05] MEDS: trazodone 50 mg Tablet PO (23:22)
--- NOTE | 2020-07-05 23:54 | PC.NURSE ---
Skin assessment revealed no wounds or injuries.
--- NOTE | 2020-07-06 01:08 | PC.NURSE ---
Skin assessment revealed no wounds or injuries.
[2020-07-06 06:00] VITALS: BP 99/59; PULSE 113; RESP 16; TEMP 37; O2SAT 96
[2020-07-06 14:00] VITALS: BP 124/72; PULSE 108; RESP 20; TEMP 36.6; O2SAT 98
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
[2020-07-06] MEDS: acetaminophen 325 mg Tablet 650 MG PO (17:34)
[2020-07-06 21:05] VITALS: BP 110/71; PULSE 103; RESP 18; TEMP 37.3; O2SAT 97
[2020-07-06] MEDS: hyDROXYzine 25 mg Capsule 50 MG PO (21:34)
[2020-07-06] MEDS: trazodone 50 mg Tablet PO (21:35)
[2020-07-07 06:00] VITALS: BP 99/63; PULSE 82; RESP 17; TEMP 36.8; O2SAT 97
[2020-07-07] MEDS: acetaminophen 325 mg Tablet 650 MG PO (11:46)
[2020-07-07] MEDS: cetylpyridinium Lozenge 1 EACH MUCOUS MEM (11:56)
[2020-07-07 14:00] VITALS: BP 106/62; PULSE 85; RESP 17; TEMP 36.4; O2SAT 95
--- NOTE | 2020-07-07 19:28 | P.PN_ITS ---
Subjective NPU Subjective: Interval history: Liu presented today reporting some reticence about going to the [employer] [facility] again because he is already been there. He had not made up his mind completely but he reported that there was some second thinking. We discussed what alternatives existed and he reports that he was thinking about the possibility of staying with his mother for a period of time. We agreed that he would reach out to his mother today so we had some sense of whether that was a possibility. Agreed we would reconvene tomorrow and look at what follow-up would be in his best interest. Mental Status Exam MSE Comments: This is a well-nourished well-developed white male with adequate dress, grooming and eye contact. No abnormal movements. Cooperative with exam no acute distress. Speech was normal rate and volume. Mood described as a little better, affect congruent. Thought process, organized. Thought content: Patient denied current suicidal or homicidal ideations, there were no delusions noted or reported, he denied any auditory or visual hallucinations. Attention and concentration were intact and memory appeared reliable but none were formally tested. He is alert and oriented x3. Insight and judgment are fair, impulse control is limited, but improving. Vitals/I&O/Wt Last Vital Signs Temp 97.5 F L 07/07/20 14:00 Pulse 85 07/07/20 14:00 Resp 17 07/07/20 14:00 BP 106/62 07/07/20 14:00 Pulse Ox 95 07/07/20 14:00 Weight last 48 hrs Weight 70.307 kg Data NPU : 07/05/20 19:45 07/05/20 19:45 A&P Additional A&P Information (1) Suicidal ideation: (2) Cannabis use disorder, severe, dependence: (3) Amphetamine use disorder, severe: (4) Depression: Additional A&P Information This is a 19-year-old white male with a long history of addiction and current depression with recent relapse who presents open to possible treatment. 1. Continue current medication. He is not interested in any medication for depression or anxiety but would like to explore whether we can assist him in getting naltrexone. 2. Continue to 15-minute checks for safety. 3. Encourage individual, group and milieu therapy. 4. Encourage sober living treatment at the highest level of care to which he is willing to commit. Involuntary Hold Information 96 Hour Hold: 96 Hour Involuntary Admission: No 96 Hour Hold Ending Date: 01/17/20 96 Hour Hold Ending Time: 02:30 Attestations NPU Medical Necessity Statement*: Inpatient hospitalization is medically necessary and the clinically appropriate intervention at this time. We will monitor medications and make changes as indicated. Likely length of stay 2-4 days. 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
[2020-07-07] MEDS: hyDROXYzine 25 mg Capsule 50 MG PO (20:51)
[2020-07-07] MEDS: trazodone 50 mg Tablet PO (20:52)
[2020-07-07 22:00] VITALS: BP 108/85; PULSE 79; RESP 18; TEMP 36.9; O2SAT 96
[2020-07-08 06:00] VITALS: BP 98/57; PULSE 89; RESP 16; TEMP 36.7; O2SAT 95
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
[2020-07-08 13:27] VITALS: BP 98/57; PULSE 89; RESP 16; TEMP 36.7; O2SAT 95
== END 2020-07-08 14:11 | disposition home or self-care (01) | DRG 882 ==
LOC: ER 21:27 → NP 21:30
PROVIDERS: Emergency Medicine; Admitting Provider Psychiatry & Neurology Psychiatry; Emergency Provider Family Medicine; PCP Family Medicine; Visit Provider Psychiatry & Neurology Psychiatry
DX: F43.23 Adjustment disorder with mixed anxiety and depressed mood (principal); R45.851 Suicidal ideations; F15.20 Other stimulant dependence, uncomplicated; F12.20 Cannabis dependence, uncomplicated; Z91.5 Personal history of self-harm; Z59.0 Homelessness; Z87.891 Personal history of nicotine dependence
CPT/HCPCS: 12345; 80053; 80306; 80307; 81003; 84443; 85025; 93005; 99284; J7030

== ENCOUNTER → 2020-08-07 15:20 | Outpatient (BNVA) | payer OTHER, SELFPAY | PROVIDERS: PCP Family Medicine; Visit Provider Nurse Practitioner | DX: Z20.828 Contact with and (suspected) exposure to other viral communicable diseases (principal) | CPT/HCPCS: 87635 ==

== ENCOUNTER 2021-02-22 03:46 | Inpatient (IN) | payer SELFPAY ==
[2021-02-22 03:58] VITALS: BP 151/86; PULSE 138; RESP 20; TEMP 36.3; O2SAT 95; BMI 22.8
--- NOTE | 2021-02-22 04:10 | ED_ITS ---
HPI - Psych General: Chief Complaint: Psychiatric Symptoms Stated Complaint: Si Time Seen by Provider: 02/22/21 03:48 Source: patient Mode of arrival: ambulatory Limitations: no limitations History of Present Illness: HPI Narrative: 20-year-old male who states he been clean from methamphetamine for 4 months start using again 3 days ago. He states that he just does not know what reality is anymore and he has been extremely paranoid and freaking out. He states that he is also been having suicidal thoughts and is scared he may actually kill himself. He is wanting to get help. Associated symptoms: Reports depression and suicidal ideation Review of Systems Const: Denies: fever(s), chills, body aches or change in appetite Eyes: Denies: blurry vision or eye discomfort ENMT: Denies: throat pain or dental pain Card: Denies: chest pain Resp: Denies: dyspnea GI: Denies: abdominal pain, nausea, vomiting or diarrhea : Denies: dysuria Musc: Denies: neck pain or back pain Skin/Breast: Denies: rash Neuro: Denies: headache(s) Psych: Reports: depression, sleeping less, paranoia and suicidal ideation Edd/Lymph: Denies: easy bruising All/Imm: Denies: urticaria PFSH ED PFSH: Medical History (Updated 02/22/21 @ 04:33 by Juan Antonio Diallo MD) Amphetamine use disorder, severe Cannabis use disorder, severe, dependence Generalized anxiety disorder Family History Mother Cancer cervical Father Heart disease Social History Smoking and tobacco status: former smoker Quit status (tobacco): has quit using tobacco Year quit tobacco: 2019 Second hand smoke exposure: Yes Smoking risk assessment/counseling performed?: Yes Tobacco counseling given: counseling >3 minutes Alcohol intake: former Marital status: Single Current occupational status: unemployed History of recent travel: No Current gender identity: Male Physical Exam Const: COMMON NORMALS: patient oriented x3 and healthy appearing HENMT: COMMON NORMALS: normocephalic and atraumatic HEAD & SCALP: normocephalic and atraumatic Eye: COMMON NORMALS: Equal, round and reactive pupils present and EOMs intact bilaterally PUPIL: Yes Equal, round and reactive pupils present Neck/C-Spine: COMMON NORMALS: full ROM and supple Chest: COMMONS NORMALS: normal inspection of the chest and normal palpation of entire chest wall Resp: COMMON NORMALS: normal respiratory effort, No retractions, No use of accessory muscles and clear to auscultation bilaterally AUSCULTATION: clear to auscultation bilaterally Cardio: COMMON NORMALS: regular rate, regular rhythm and No murmurs present (Cardio) RATE: regular rate RHYTHM: regular rhythm GI: COMMON NORMALS: Normal to inspection, nondistended, normoactive bowel sounds present, Soft to palpation, non-tender and no masses PALPATION: Yes Soft to palpation Extremity: COMMON NORMALS: normal to inspection and full ROM Neuro: COMMON NORMALS: patient oriented x3, moves all extremities and no focal motor deficits Psych: COMMON NORMALS: cooperative ATTITUDE: Yes paranoid MOOD & AFFECT: Yes elevated mood THOUGHT CONTENT: Yes Suicidality present and Yes Hallucination(s) present Skin: COMMON NORMALS: no rashes or lesions noted and no wounds GENERAL SKIN EXAM: no rashes or lesions noted Course Vital Signs: Vital signs: Vital Signs Temperature 97.3 F L 02/22/21 03:58 Pulse Rate 138 H 02/22/21 03:58 Respiratory Rate 20 H 02/22/21 03:58 Blood Pressure 151/86 02/22/21 03:58 Pulse Oximetry 95 02/22/21 03:58 MDM - Psych MDM Narrative: Medical decision making narrative: Patient presents here with methamphetamine abuse causing psychosis and he is also having suicidal thoughts. Patient placed on a 96-hour hold and is medically cleared I spoke to psychiatrist Dr. Díaz and will admit to the psychiatric unit. Lab Data: Labs: Lab Results 02/22/21 02/22/21 Range/Units 04:05 04:05 WBC 11.9 H (4.0-10.0) 10^3/ uL RBC 4.96 (4.1-5.3) 10^6/u L Hgb 14.6 (11.7-16.6) g/dL Hct 43.9 (42.0-52.0) % MCV 88.5 (80-94) fl MCH 29.4 (28.0-34.0) pg MCHC 33.3 (30.0-36.0) g/dL RDW 11.9 L (12.1-15.1) % Plt Count 339 (130-400) 10^3/c mm MPV 11.5 H (7.4-10.4) fL Neut % (Auto) 59.0 % Lymph % (Auto) 22.9 % [place] % (Auto) 17.3 % Eos % (Auto) 0.1 % Baso % (Auto) 0.4 % Neut # (Auto) 7.02 (1.8-7.7) 10^3/u L Lymph # (Auto) 2.7 (0.8-4.8) 10^3/u L [place] # (Auto) 2.1 H (0.2-0.9) 10^3/u L Eos # (Auto) 0.0 (0.0-0.8) 10^3/u L Baso # (Auto) 0.1 (0.0-0.1) 10^3/u L Nucleated RBC % (a uto) 0 % Nucleated RBCs # 0.0 /100WBC Sodium 140 (136-145) mmol/L Potassium 3.6 (3.5-5.1) mmol/L Chloride 100 (98-107) mmol/L Carbon Dioxide 22 (22-29) mmol/L Anion Gap 21.6 H (5-19) BUN 15 (6-20) mg/dL Creatinine 0.9 (0.7-1.2) mg/dL GFR Calculation 106.5 (90-130) mL/min Glucose 84 (65-115) mg/dL Calculated Osmolal ity 290 (285-295) mOsm/k g Calcium 9.7 (8.5-10.5) mg/dL Total Bilirubin 0.5 (0.15-1.2) mg/dL AST 21 (0-40) U/L ALT 21 (0-41) U/L Alkaline Phosphata se 63 (40-130) IU/L Total Protein 7.3 (6.6-8.7) g/dL Albumin 4.7 (3.5-5.2) g/dL Globulin 2.6 (1.3-4.6) g/dL Salicylates < 0.3 L (3-10) mg/dL Acetaminophen < 5.0 L (10-30) ug/mL Ethyl Alcohol < 10 (0-10) mg/dL Discharge Plan Discharge Patient Disposition: Admitted As Inpatient Clinical Impression: Amphetamine use disorder, severe, Suicidal ideation, Drug-induced psychotic disorder Condition: Stable Coding Level of Care Code ED 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
[2021-02-22] MEDS: haloperidol 5 mg Tablet PO (04:16)
[2021-02-22] MEDS: LORazepam 2 mg Tablet PO (04:17)
[2021-02-22 04:26] LABS: Basophils # 0.1 10^3/uL (0.0-0.1); Basophils % 0.4 %; Eosinophils % 0.1 %; Hematocrit 43.9 % (42.0-52.0); Hemoglobin 14.6 g/dL (11.7-16.6); Lymphocytes # 2.7 10^3/uL (0.8-4.8); Lymphocytes % 22.9 %; Mean Corpuscular HGB Conc 33.3 g/dL (30.0-36.0); Mean Corpuscular Hemoglobin 29.4 pg (28.0-34.0); Mean Corpuscular Volume 88.5 fl (80-94); Mean Platelet Volume 11.5 fL (7.4-10.4); Monocytes # 2.1 10^3/uL (0.2-0.9); Monocytes % 17.3 %; Neutrophils # 7.02 10^3/uL (1.8-7.7); Nucleated Red Blood Cells % 0 %; Platelet Count 339 10^3/cmm (130-400); Red Blood Count 4.96 10^6/uL (4.1-5.3); Red Cell Distribution Width 11.9 % (12.1-15.1); White Blood Count 11.9 10^3/uL (4.0-10.0)
[2021-02-22 04:45] LABS: Alanine Aminotransferase 21 U/L (0-41); Albumin Level 4.7 g/dL (3.5-5.2); Alkaline Phosphatase 63 IU/L (40-130); Anion Gap 21.6 (5-19); Aspartate Amino Transferase 21 U/L (0-40); Blood Urea Nitrogen 15 mg/dL (6-20); Calcium 9.7 mg/dL (8.5-10.5); Carbon Dioxide 22 mmol/L (22-29); Chloride 100 mmol/L (98-107); Globulin 2.6 g/dL (1.3-4.6); Glomerular Filtration Rate 106.5 mL/min (90-130); Glucose 84 mg/dL (65-115); Osmolality Calculated 290 mOsm/kg (285-295); Potassium 3.6 mmol/L (3.5-5.1); Sodium 140 mmol/L (136-145); Total Bilirubin 0.5 mg/dL (0.15-1.2); Total Protein 7.3 g/dL (6.6-8.7)
[2021-02-22 04:47] LABS: Acetaminophen < 5.0 ug/mL (10-30); Alcohol Level < 10 mg/dL (0-10); Salicylate < 0.3 mg/dL (3-10)
[2021-02-22 05:36] VITALS: BP 120/72; PULSE 122; RESP 18; O2SAT 98
[2021-02-22 06:15] VITALS: BP 129/79; PULSE 112; RESP 19; TEMP 37.8; O2SAT 100
[2021-02-22 06:19] VITALS: BP 129/79; PULSE 112; RESP 19; TEMP 37.8; O2SAT 100
[2021-02-22] MEDS: acetaminophen 325 mg Tablet 650 MG PO (06:39)
[2021-02-22 14:00] VITALS: BP 122/71; PULSE 86; RESP 18; TEMP 36.8; O2SAT 96
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
[2021-02-22] MEDS: trazodone 50 mg Tablet PO (20:43)
[2021-02-22] MEDS: BuSPIRONE 10 mg Tablet 15 MG PO (20:43)
[2021-02-22] MEDS: hyDROXYzine 25 mg Capsule 50 MG PO (20:43)
[2021-02-22 22:00] VITALS: BP 105/63; PULSE 107; RESP 18; TEMP 36.7; O2SAT 97
--- NOTE | 2021-02-23 03:26 | PC.NURSE ---
PRN 2042 Administered Trazodone 50mg, Vistaril 50mg for anxiety and sleeping aids. Will continue to monitor.
[2021-02-23 05:56] VITALS: BP 99/57; PULSE 93; RESP 20; TEMP 36.6; O2SAT 97
[2021-02-23] MEDS: BuSPIRONE 10 mg Tablet 15 MG PO (08:32)
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
[2021-02-23 10:02] VITALS: BP 99/57; PULSE 93; RESP 20; TEMP 36.6; O2SAT 97
[2021-02-23 10:04] VITALS: BP 99/57; PULSE 93; RESP 20; TEMP 36.6; O2SAT 97
== END 2021-02-23 10:36 | disposition home or self-care (01) | DRG 897 ==
LOC: ER 04:33 → NP 05:20
PROVIDERS: Admitting Provider Psychiatry & Neurology Psychiatry; Emergency Provider Emergency Medicine; Visit Provider Psychiatry & Neurology Psychiatry
DX: F15.159 Other stimulant abuse with stimulant-induced psychotic disorder, unspecified (principal); R45.851 Suicidal ideations; F32.9 Major depressive disorder, single episode, unspecified; F15.10 Other stimulant abuse, uncomplicated; F12.20 Cannabis dependence, uncomplicated; F41.1 Generalized anxiety disorder; Z87.891 Personal history of nicotine dependence; F10.10 Alcohol abuse, uncomplicated
CPT/HCPCS: 36415; 80053; 80307; 85025; 97165; 99285